=== PATIENT | male | born 1950 | race Caucasian/White ===

== ENCOUNTER → 2020-08-15 12:51 | Outpatient (BNVA) | payer MEDICARE, SELFPAY | PROVIDERS: Family Provider Family Medicine; PCP Family Medicine; Visit Provider Nurse Practitioner Family | DX: Z11.59 Encounter for screening for other viral diseases (principal) | CPT/HCPCS: 87635 ==

== ENCOUNTER 2021-01-19 16:47 | Emergency (ER) | payer MEDICARE, SELFPAY ==
[2021-01-19 16:48] VITALS: BP 102/58; PULSE 100; RESP 16; O2SAT 93; BMI 17.9
--- NOTE | 2021-01-19 16:53 | XRR_ITS ---
PROCEDURE INFORMATION: Exam: XR Chest Exam date and time: 01/19/2021 5:04 PM Age: 70 years old Clinical indication: Chest pain; Additional info: Cp TECHNIQUE: Imaging protocol: XR of the chest Views: 1 view. COMPARISON: CR Chest 1 [place] [id number] 01/11/2016 1:16 PM FINDINGS: Lungs: Emphysema. No consolidation. Pleural spaces: Unremarkable. No pleural effusion. No pneumothorax. Heart/Mediastinum: Unremarkable. No cardiomegaly. Bones/joints: Chronic severe rightward convex thoracic spine scoliosis. Osseous demineralization. No change in bones from prior. XR/XR chest 1V portable [id number] IMPRESSION: No acute pulmonary disease identified.
--- NOTE | 2021-01-19 16:55 | ECG_ITS ---
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 Measurements Intervals [place] Rate: 90 P: 69 DE: 137 QRS: 75 QRSD: 89 T: 75 QT: 342 QTc: 420 Interpretive Statements SINUS RHYTHM Compared to ECG 01/11/2016 13:13:42 Ventricular premature complex(es) no longer present Electronically Signed On 01-19-2021 17:58:48 CDT by Silvio Major M.D. [id number]
[2021-01-19] MEDS: lidocaine 2% viscous 15 ML, aluminum-mag hydrox-simethicon 30 ML, sucralfate oral liq 1 GM PO (17:06)
[2021-01-19 17:07] LABS: Basophils % 0.4 %; Eosinophils # 0.1 10^3/uL (0.0-0.8); Eosinophils % 0.7 %; Hematocrit 52.5 % (42.0-52.0); Hemoglobin 17.4 g/dL (11.7-16.6); Lymphocytes # 1.1 10^3/uL (0.8-4.8); Lymphocytes % 13.3 %; Mean Corpuscular HGB Conc 33.1 g/dL (30.0-36.0); Mean Corpuscular Hemoglobin 30.7 pg (28.0-34.0); Mean Corpuscular Volume 92.8 fL (80-94); Mean Platelet Volume 10.4 fL (7.4-10.4); Monocytes # 0.5 10^3/uL (0.2-0.9); Monocytes % 6.2 %; Neutrophils # 6.76 10^3/uL (1.8-7.7); Nucleated Red Blood Cells % 0 %; Platelet Count 167 10^3/cmm (130-400); Red Blood Count 5.66 10^6/uL (4.1-5.3); White Blood Count 8.6 10^3/uL (4.0-10.0)
--- NOTE | 2021-01-19 17:11 | W.ED.CHESTPA ---
Documented by User: Adilson Yanez MD 01/19/21 17:53 HPI - Chest Pain General: Chief Complaint: Chest Pain Stated Complaint: CHEST PAIN Time Seen by Provider: 01/19/21 16:50 Source: patient and EMS Mode of arrival: EMS Limitations: no limitations History of Present Illness: HPI narrative: 1-year-old male states he been having a burning chest pain since yesterday. He states he has had lots of burping is burning sensation in the middle of his chest. He states that nitro did help his pain. Denies any worsening proving factors. Denies any shortness of breath. Is a longtime smoker. He has no history of heart disease himself. Denies any cough or fever Associated symptoms: Deny abdominal pain, dyspnea, fever(s), nausea or vomiting Review of Systems Const: Denies: fever(s), chills, body aches or change in appetite Eyes: Denies: blurry vision or eye discomfort ENMT: Denies: throat pain or dental pain Card: Reports: chest pain Resp: Denies: dyspnea GI: Denies: abdominal pain, nausea, vomiting or diarrhea : Denies: dysuria Musc: Denies: neck pain or back pain Skin/Breast: Denies: rash Neuro: Denies: headache(s) Psych: Denies: depression Jordan/Lymph: Denies: easy bruising All/Imm: Denies: urticaria PFSH ED PFSH: Medical History Charcot-Kaykay disease Foot drop, bilateral History of progressive weakness Nicotine addiction Restrictive lung disease Social History Smoking and tobacco status: current every day smoker cigarettes Packs smoked per day: 0.5 Years cigarettes smoked: 30 Alcohol intake: never Physical Exam Const: COMMON NORMALS: no acute distress, patient oriented x3 and healthy appearing HENMT: COMMON NORMALS: normocephalic and atraumatic HEAD & SCALP: normocephalic and atraumatic Eye: COMMON NORMALS: Equal, round and reactive pupils present and EOMs intact bilaterally PUPIL: Yes Equal, round and reactive pupils present Neck/C-Spine: COMMON NORMALS: full ROM and supple Chest: COMMONS NORMALS: normal inspection of the chest and normal palpation of entire chest wall Resp: COMMON NORMALS: normal respiratory effort, No retractions, No use of accessory muscles and clear to auscultation bilaterally AUSCULTATION: clear to auscultation bilaterally Cardio: COMMON NORMALS: regular rate, regular rhythm and No murmurs present (Cardio) RATE: regular rate RHYTHM: regular rhythm GI: COMMON NORMALS: Normal to inspection, nondistended, normoactive bowel sounds present, Soft to palpation, non-tender and no masses PALPATION: Yes Soft to palpation Extremity: COMMON NORMALS: normal to inspection and full ROM Neuro: COMMON NORMALS: patient oriented x3, moves all extremities and no focal motor deficits Psych: COMMON NORMALS: mental status grossly normal, Normal thought process present and cooperative THOUGHT PROCESS: Normal thought process present Skin: COMMON NORMALS: no rashes or lesions noted and no wounds GENERAL SKIN EXAM: no rashes or lesions noted Course Vital Signs: Vital signs: Vital Signs Pulse Rate 80 01/19/21 21:10 Respiratory Rate 17 01/19/21 21:10 Blood Pressure 109/67 01/19/21 21:10 Pulse Oximetry 95 01/19/21 21:10 MDM - Chest Pain MDM Narrative: Medical decision making narrative: Claudio presents with chest pain that is atypical in nature. He has had burping and epigastric pain with it could be a gastritis or reflux. Initial troponin is only mildly elevated will turn patient over to Dr. Yu to follow 2-hour troponin. His EKG and x-ray here shows no acute findings. Lab Data: Labs: Lab Results 01/19/21 01/19/21 01/19/21 Range/Units 16:25 16:25 16:25 WBC 8.6 (4.0-10.0) 10^3/ uL RBC 5.66 H (4.1-5.3) 10^6/u L Hgb 17.4 H (11.7-16.6) g/dL Hct 52.5 H (42.0-52.0) % MCV 92.8 (80-94) fL MCH 30.7 (28.0-34.0) pg MCHC 33.1 (30.0-36.0) g/dL RDW 14.0 (12.1-15.1) % Plt Count 167 (130-400) 10^3/c mm MPV 10.4 (7.4-10.4) fL Neut % (Auto) 79.0 % Lymph % (Auto) 13.3 % Tillman % (Auto) 6.2 % Eos % (Auto) 0.7 % Baso % (Auto) 0.4 % Neut # (Auto) 6.76 (1.8-7.7) 10^3/u L Lymph # (Auto) 1.1 (0.8-4.8) 10^3/u L Tillman # (Auto) 0.5 (0.2-0.9) 10^3/u L Eos # (Auto) 0.1 (0.0-0.8) 10^3/u L Baso # (Auto) 0.0 (0.0-0.1) 10^3/u L Nucleated RBC % (a uto) 0 % Nucleated RBCs # 0.0 /100WBC Sodium 139 (136-145) mmol/L Potassium 4.6 (3.5-5.1) mmol/L Chloride 98 (98-107) mmol/L Carbon Dioxide 26 (22-29) mmol/L Anion Gap 19.6 H (5-19) BUN 30 H (8-23) mg/dL Creatinine 0.5 L (0.7-1.2) mg/dL GFR Calculation Not Reportable Glucose 99 (65-115) mg/dL Calculated Osmolal ity 294 (285-295) mOsm/k g Calcium 9.8 (8.5-10.5) mg/dL Total Bilirubin 0.5 (0.15-1.2) mg/dL AST 36 (0-40) U/L ALT 34 (0-41) U/L Alkaline Phosphata se 59 (40-130) IU/L Troponin T Baselin e 21 H (0-15) ng/L Troponin T 120 Min [place] (0-15) ng/L Delta Troponin T (0-10) ABS# Total Protein 7.3 (6.6-8.7) g/dL Albumin 4.9 (3.5-5.2) g/dL Globulin 2.4 (1.3-4.6) g/dL 01/19/21 Range/Units 18:20 WBC (4.0-10.0) 10^3/ uL RBC (4.1-5.3) 10^6/u L Hgb (11.7-16.6) g/dL Hct (42.0-52.0) % MCV (80-94) fL MCH (28.0-34.0) pg MCHC (30.0-36.0) g/dL RDW (12.1-15.1) % Plt Count (130-400) 10^3/c mm MPV (7.4-10.4) fL Neut % (Auto) % Lymph % (Auto) % Tillman % (Auto) % Eos % (Auto) % Baso % (Auto) % Neut # (Auto) (1.8-7.7) 10^3/u L Lymph # (Auto) (0.8-4.8) 10^3/u L Tillman # (Auto) (0.2-0.9) 10^3/u L Eos # (Auto) (0.0-0.8) 10^3/u L Baso # (Auto) (0.0-0.1) 10^3/u L Nucleated RBC % (a uto) % Nucleated RBCs # /100WBC Sodium (136-145) mmol/L Potassium (3.5-5.1) mmol/L Chloride (98-107) mmol/L Carbon Dioxide (22-29) mmol/L Anion Gap (5-19) BUN (8-23) mg/dL Creatinine (0.7-1.2) mg/dL GFR Calculation Glucose (65-115) mg/dL Calculated Osmolal ity (285-295) mOsm/k g Calcium (8.5-10.5) mg/dL Total Bilirubin (0.15-1.2) mg/dL AST (0-40) U/L ALT (0-41) U/L Alkaline Phosphata se (40-130) IU/L Troponin T Baselin e (0-15) ng/L Troponin T 120 Min [place] 17.93 H (0-15) ng/L Delta Troponin T -3.07 L (0-10) ABS# Total Protein (6.6-8.7) g/dL Albumin (3.5-5.2) g/dL Globulin (1.3-4.6) g/dL Imaging Data^: CXR: Attestation: I personally reviewed and interpreted this imaging study as follows: My impression: no acute abnormality EKG Data^: EKG 1: Attestation: I personally reviewed and interpreted this EKG as follows: EKG interpretation date: 01/19/21 EKG interpretation time: 17:19 Interpretation: nsr hr [address] or t wave abnormalities qrs 89 qtc 390 Discharge Plan Discharge Patient Disposition: Home Clinical Impression: Chest pain Qualifiers: Chest pain type: unspecified Qualified Code(s): R07.9 - Chest pain, unspecified Condition: Stable Prescriptions: New Prevacid 30 mg capsule,delayed release(DR/EC) 30 mg PO DAILY Qty: 30 RF: 0 No Action multivitamin [Daily Multi-Vitamin] Tablet 1 tab PO DAILY RF: 0 naproxen [EC-Naprosyn] 500 mg tablet,delayed release (DR/EC) 500 mg PO BID RF: 0 bupropion HCl [Wellbutrin SR] 100 mg tablet sustained-release 12 hr 100 mg PO BID Qty: 40 RF: 1 lorazepam 1 mg tablet 1 mg PO DAILY PRN (Reason: anxiety/smothering) Qty: 14 RF: 0 albuterol sulfate [Proventil HFA] 90 mcg/actuation HFA aerosol inhaler 2 puff INHALATION Q4H PRN (Reason: shortness of breath or wheezing) 90 Days Qty: 108 RF: 3 doxazosin 2 mg tablet 2 mg PO DAILY 90 Days Qty: 90 RF: 3 Discharge Orders: Discharge ED (Routine); Ordered 01/19/21 Ordered By: Chris Yu Referrals: Lana Mueller MD [Primary Care Provider] - 4-7 days Discharge Diet: Advance as tolerated Patient Instructions: Chest Pain (ED), Esophageal Spasm (ED) Coding Level of Care Code ED 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 Fwd Exam Comprehensive Documented by User: Chris Yu DO 01/20/21 00:23 HPI - Chest Pain General: Chief Complaint: Chest Pain Stated Complaint: CHEST PAIN Time Seen by Provider: 01/19/21 16:50 [facility] ED PFSH: Medical History Charcot-Kaykay disease Foot drop, bilateral History of progressive weakness Nicotine addiction Restrictive lung disease Social History Smoking and tobacco status: current every day smoker cigarettes Packs smoked per day: 0.5 Years cigarettes smoked: 30 Alcohol intake: never Course Vital Signs: Vital signs: Vital Signs Pulse Rate 80 01/19/21 21:10 Respiratory Rate 17 01/19/21 21:10 Blood Pressure 109/67 01/19/21 21:10 Pulse Oximetry 95 01/19/21 21:10 MDM - Chest Pain MDM Narrative: Medical decision making narrative: 70-year-old gentleman with chest pain, and some gastrointestinal upset checked out to me by Dr. Yanez at shift change. His repeat EKG was stable. His troponin was stable as well and did not rise. His symptoms are improved. In case his chest pain was related to GI causes, he will be placed on Prevacid. This was explained to him. He knows to follow-up tomorrow by phone with his PCP, as outpatient testing may be needed. Lab Data: Labs: Lab Results 01/19/21 01/19/21 01/19/21 Range/Units 16:25 16:25 16:25 WBC 8.6 (4.0-10.0) 10^3/ uL RBC 5.66 H (4.1-5.3) 10^6/u L Hgb 17.4 H (11.7-16.6) g/dL Hct 52.5 H (42.0-52.0) % MCV 92.8 (80-94) fL MCH 30.7 (28.0-34.0) pg MCHC 33.1 (30.0-36.0) g/dL RDW 14.0 (12.1-15.1) % Plt Count 167 (130-400) 10^3/c mm MPV 10.4 (7.4-10.4) fL Neut % (Auto) 79.0 % Lymph % (Auto) 13.3 % Tillman % (Auto) 6.2 % Eos % (Auto) 0.7 % Baso % (Auto) 0.4 % Neut # (Auto) 6.76 (1.8-7.7) 10^3/u L Lymph # (Auto) 1.1 (0.8-4.8) 10^3/u L Tillman # (Auto) 0.5 (0.2-0.9) 10^3/u L Eos # (Auto) 0.1 (0.0-0.8) 10^3/u L Baso # (Auto) 0.0 (0.0-0.1) 10^3/u L Nucleated RBC % (a uto) 0 % Nucleated RBCs # 0.0 /100WBC Sodium 139 (136-145) mmol/L Potassium 4.6 (3.5-5.1) mmol/L Chloride 98 (98-107) mmol/L Carbon Dioxide 26 (22-29) mmol/L Anion Gap 19.6 H (5-19) BUN 30 H (8-23) mg/dL Creatinine 0.5 L (0.7-1.2) mg/dL GFR Calculation Not Reportable Glucose 99 (65-115) mg/dL Calculated Osmolal ity 294 (285-295) mOsm/k g Calcium 9.8 (8.5-10.5) mg/dL Total Bilirubin 0.5 (0.15-1.2) mg/dL AST 36 (0-40) U/L ALT 34 (0-41) U/L Alkaline Phosphata se 59 (40-130) IU/L Troponin T Baselin e 21 H (0-15) ng/L Troponin T 120 Min [place] (0-15) ng/L Delta Troponin T (0-10) ABS# Total Protein 7.3 (6.6-8.7) g/dL Albumin 4.9 (3.5-5.2) g/dL Globulin 2.4 (1.3-4.6) g/dL 01/19/21 Range/Units 18:20 WBC (4.0-10.0) 10^3/ uL RBC (4.1-5.3) 10^6/u L Hgb (11.7-16.6) g/dL Hct (42.0-52.0) % MCV (80-94) fL MCH (28.0-34.0) pg MCHC (30.0-36.0) g/dL RDW (12.1-15.1) % Plt Count (130-400) 10^3/c mm MPV (7.4-10.4) fL Neut % (Auto) % Lymph % (Auto) % Tillman % (Auto) % Eos % (Auto) % Baso % (Auto) % Neut # (Auto) (1.8-7.7) 10^3/u L Lymph # (Auto) (0.8-4.8) 10^3/u L Tillman # (Auto) (0.2-0.9) 10^3/u L Eos # (Auto) (0.0-0.8) 10^3/u L Baso # (Auto) (0.0-0.1) 10^3/u L Nucleated RBC % (a uto) % Nucleated RBCs # /100WBC Sodium (136-145) mmol/L Potassium (3.5-5.1) mmol/L Chloride (98-107) mmol/L Carbon Dioxide (22-29) mmol/L Anion Gap (5-19) BUN (8-23) mg/dL Creatinine (0.7-1.2) mg/dL GFR Calculation Glucose (65-115) mg/dL Calculated Osmolal ity (285-295) mOsm/k g Calcium (8.5-10.5) mg/dL Total Bilirubin (0.15-1.2) mg/dL AST (0-40) U/L ALT (0-41) U/L Alkaline Phosphata se (40-130) IU/L Troponin T Baselin e (0-15) ng/L Troponin T 120 Min [place] 17.93 H (0-15) ng/L Delta Troponin T -3.07 L (0-10) ABS# Total Protein (6.6-8.7) g/dL Albumin (3.5-5.2) g/dL Globulin (1.3-4.6) g/dL Discharge Plan Discharge Patient Disposition: Home Clinical Impression: Chest pain Qualifiers: Chest pain type: unspecified Qualified Code(s): R07.9 - Chest pain, unspecified Condition: Stable Prescriptions: New Prevacid 30 mg capsule,delayed release(DR/EC) 30 mg PO DAILY Qty: 30 RF: 0 No Action multivitamin [Daily Multi-Vitamin] Tablet 1 tab PO DAILY RF: 0 naproxen [EC-Naprosyn] 500 mg tablet,delayed release (DR/EC) 500 mg PO BID RF: 0 bupropion HCl [Wellbutrin SR] 100 mg tablet sustained-release 12 hr 100 mg PO BID Qty: 40 RF: 1 lorazepam 1 mg tablet 1 mg PO DAILY PRN (Reason: anxiety/smothering) Qty: 14 RF: 0 albuterol sulfate [Proventil HFA] 90 mcg/actuation HFA aerosol inhaler 2 puff INHALATION Q4H PRN (Reason: shortness of breath or wheezing) 90 Days Qty: 108 RF: 3 doxazosin 2 mg tablet 2 mg PO DAILY 90 Days Qty: 90 RF: 3 Discharge Orders: Discharge ED (Routine); Ordered 01/19/21 Ordered By: Chris Yu Referrals: Lana Mueller MD [Primary Care Provider] - 4-7 days Discharge Diet: Advance as tolerated Patient Instructions: Chest Pain (ED), Esophageal Spasm (ED) Coding Level of Care Code ED 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 Chg Fwd Exam Comprehensive
[2021-01-19 17:27] LABS: Alanine Aminotransferase 34 U/L (0-41); Albumin Level 4.9 g/dL (3.5-5.2); Alkaline Phosphatase 59 IU/L (40-130); Aspartate Amino Transferase 36 U/L (0-40); Blood Urea Nitrogen 30 mg/dL (8-23); Calcium 9.8 mg/dL (8.5-10.5); Carbon Dioxide 26 mmol/L (22-29); Chloride 98 mmol/L (98-107); Globulin 2.4 g/dL (1.3-4.6); Glucose 99 mg/dL (65-115); Osmolality Calculated 294 mOsm/kg (285-295); Sodium 139 mmol/L (136-145); Total Bilirubin 0.5 mg/dL (0.15-1.2); Total Protein 7.3 g/dL (6.6-8.7)
[2021-01-19 17:28] LABS: Anion Gap 19.6 (5-19); Potassium 4.6 mmol/L (3.5-5.1); Troponin(5th) Baseline 21 ng/L (0-15)
[2021-01-19 17:50] VITALS: PULSE 78; RESP 21; O2SAT 95
[2021-01-19 18:22] VITALS: BP 125/70; PULSE 81; RESP 26; O2SAT 94
[2021-01-19 18:46] LABS: Troponin 5 2HR 17.93 ng/L (0-15)
--- NOTE | 2021-01-19 18:55 | ECG_ITS ---
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 Measurements Intervals [place] Rate: 90 P: 69 UT: 146 QRS: 73 QRSD: 88 T: 87 QT: 346 QTc: 424 Interpretive Statements SINUS RHYTHM Compared to ECG 01/19/2021 17:19:03 No significant changes Electronically Signed On 01-20-2021 19:26:13 CDT by Silvio Major M.D. [id number]
[2021-01-19 19:08] LABS: Troponin 5 2HR Delta -3.07 ABS# (0-10)
[2021-01-19 21:10] VITALS: BP 109/67; PULSE 80; RESP 17; O2SAT 95
== END 2021-01-19 21:25 | disposition home or self-care (01) ==
PROVIDERS: Emergency Medicine; Emergency Provider Emergency Medicine; PCP Family Medicine
DX: R07.9 Chest pain, unspecified (principal); F17.210 Nicotine dependence, cigarettes, uncomplicated
CPT/HCPCS: 71045; 80053; 84484; 85025; 93005; 99284

== ENCOUNTER → 2023-02-08 12:44 | Outpatient (BNVA) | payer MEDICARE, SELFPAY | PROVIDERS: PCP Family Medicine; Visit Provider Family Medicine | DX: I20.8 Other forms of angina pectoris (principal); M21.371 Foot drop, right foot; M21.372 Foot drop, left foot; J98.4 Other disorders of lung | CPT/HCPCS: 80053; 85025 ==

== ENCOUNTER 2024-02-15 12:35 | Observation (INO) | payer MEDICARE, SELFPAY ==
[2024-02-15] VITALS (10 sets, daily range): BP systolic 94–147; BP diastolic 46–79; PULSE 84–110; RESP 16–20; TEMP 36.6–36.7; O2SAT 88–97; BMI 19.8
--- NOTE | 2024-02-15 12:40 | ED_ITS ---
HPI - Back Pain/Injury 2 General: Chief Complaint: Urogenital-Male Stated Complaint: Back pain Time Seen by Provider: 02/15/24 12:39 Source: patient and EMS Mode of arrival: EMS Limitations: no limitations History of Present Illness: Patient is a 73-year-old male on hospice with a history of end-stage COPD, CHF, chronic smoking, severe thoracic scoliosis and Charcot Kaykay disease requiring cane/braces for ambulation here via EMS for complaints of right-sided back pain and hematuria. States he started developing right flank pain around 9 AM this morning. He states pain lasted for several hours before subsiding on its own. He is currently rating pain is minimal. He did notice approximately 4 episodes of gross hematuria. He is unable to urinate upon arrival here but has an extreme urge to do so. Apparently his hospice nurse had recommended evaluation in the emergency department as they were concerned with possible sepsis in regards to bilateral lower extremity wounds that he has reportedly had for months . He is reportedly having them dressed by hospice wound care nurse but feels they are continuing to worsen. Complains of ulcers now and large amount of weeping. MD elicited complaint: back pain and other (leg wounds/weeping) Onset (ago): hour(s) Timing: improved Severity: mild Pain scale (0-10): 3 Location: right flank Radiation: none Exacerbating factors: none Relieving factors: none Associated symptoms: Reports difficulty walking (chronic; uses a cane), hematuria, urinary urgency and other (hematuria); Deny abdominal pain, chills, dysuria or fever(s) Work related injury: No Review of Systems 2 Const: Denies: fever(s), chills or body aches Card: Denies: chest pain Resp: Denies: dyspnea GI: Denies: abdominal pain : Reports: flank pain, difficulty urinating, urinary frequency, urinary urgency, urinary hesitancy and hematuria; Denies: dysuria Musc: Reports: back pain Skin/Breast: Denies: rash Neuro: Reports: difficulty walking (chronic; uses a cane); Denies: headache(s) PFSH ED 2 PFSH: Medical History Prostatism Angina at rest Nicotine addiction Restrictive lung disease Charcot-Kaykay disease Foot drop, bilateral History of progressive weakness Social History Smoking and tobacco/nicotine status: current every day tobacco/nicotine user cigarettes Packs smoked per day: 0.5 Years cigarettes smoked: 30 Alcohol intake: never Substance/Drug Use: never Physical Exam 2 Const: COMMON NORMALS: patient oriented x3, no limitations and alert G ENERAL APPEARANCE: cooperative NUTRITIONAL APPEARANCE: cachectic (chronic) ORIENTATION/CONSCIOUSNESS: Yes awake, Yes oriented to person, Yes oriented to place and Yes oriented to time OTHER: disgruntled a large portion of his visit stating he doesn't like hospitals but at times is more cooperative HENMT: COMMON NORMALS: normocephalic and atraumatic HEAD & SCALP: normal to inspection, normocephalic and atraumatic FACE & SINUS: normal facial exam Eye: GENERAL EYE: appearance normal, both eyes and all related structures Resp: AUSCULTATION: rhonchi (diffuse-patient has end stage COPD) throughout OTHER: on his normal 2L O2 Cardio: COMMON NORMALS: regular rhythm RATE: tachycardic (mild-104 during my assessment) RHYTHM: regular rhythm GI: COMMON NORMALS: Normal to inspection, nondistended, normoactive bowel sounds present, Soft to palpation and non-tender PALPATION: Yes Soft to palpation : COMMON NORMALS: Yes no CVA tenderness (states most of his pain is gone currently) BLADDER/KIDNEY EXAM: Yes no CVA tenderness (states most of his pain is gone currently) Back/Pelvis: COMMON NORMALS: no CVA tenderness (states most of his pain is gone currently) and thoracic and lumbar spine normal to inspection Extremity: OTHER: atrophy to bilateral LEs; he has chronic dermatitis skin changes with weeping L>R and possible overlying cellulitis; L great toe previous amputation; dorsal ulcers to L foot Neuro: COMMON NORMALS: patient oriented x3 SENSORIUM/ORIENTATION: Yes alert, Yes oriented to person, Yes oriented to place and Yes oriented to time GAIT: Yes Antalgic gait present (chronic; has bilateral leg braces and uses a walker) Course 2 Consultations: Consultation #1: Dr. Weston-accepts admission Vital Signs: Vital signs: Vital Signs Temperature 97.8 F 02/15/24 12:45 Pulse Rate 84 02/15/24 15:00 Respiratory Rate 16 02/15/24 15:00 Blood Pressure 133/57 02/15/24 15:00 Pulse Oximetry 95 02/15/24 15:00 Oxygen Delivery Me thod Nasal Cannula 02/15/24 15:00 Oxygen Flow Rate 2 02/15/24 15:00 MDM - Back Pain/Injury Medical Decision Making Patient is a 73-year-old male with an extensive medical history and chronic illness on hospice here in the emergency department stating he would like his hospice revoked and admitted to the hospital. He states he had a right flank pain earlier today that lasted for an hour or 2 before subsiding on its own. It has not returned. He has since had gross hematuria, urinary urgency, and frequency with small voids. He also has a complaint of bilateral lower extremity lymphedema with weeping and developing wounds that are not improving with wound care provided by hospice. He states he overall feels poorly and would like to be admitted to the hospital. Workup here shows a white count of roughly 12.7 with a left shift. His lactate is normal. UA showing gross hematuria with infection. CT scan does not show an obstructive stone. He was started on IV Rocephin. Spoke to hospitalist Dr. Weston who is agreeable to admit patient. Dr. Randhawa aware of patient and will place admit orders. Labs 02/15/24 12:36 02/15/24 12:36 Radiology Impressions Chest X-Ray 02/15/24 12:54 IMPRESSION: No acute cardiopulmonary pathology . Possible new midthoracic vertebral body compression deformity. Spine radiographs and/or CT recommended for further assessment if clinically warranted. Laboratory Results WBC 12.69 10^3/uL (3.29-11.43) H 02/15/24 12:36 RBC 5.13 10^6/uL (3.85-5.65) 02/15/24 12:36 Hgb 15.30 g/dL (11.27-16.99) 02/15/24 12:36 Hct 48.0 % (37-53) 02/15/24 12:36 MCV 93.6 fl (82-101) 02/15/24 12:36 MCH 29.8 pg (27-33) 02/15/24 12:36 MCHC 31.9 g/dL (30-55) 02/15/24 12:36 RDW 13.5 % (12.1-15.1) 02/15/24 12:36 Plt Count 287 10^3/cmm (157-399) 02/15/24 12:36 MPV 9.7 fL (7.4-10.4) 02/15/24 12:36 Neut % (Auto) 85.3 % 02/15/24 12:36 Lymph % (Auto) 8.4 % 02/15/24 12:36 [place] % (Auto) 5.5 % 02/15/24 12:36 Eos % (Auto) 0.2 % 02/15/24 12:36 Baso % (Auto) 0.2 % 02/15/24 12:36 Neut # (Auto) 10.82 10^3/uL (1.8-7.7) H 02/15/24 12:36 Lymph # (Auto) 1.1 10^3/uL (0.8-4.8) 02/15/24 12:36 [place] # (Auto) 0.7 10^3/uL (0.2-0.9) 02/15/24 12:36 Eos # (Auto) 0.0 10^3/uL (0.0-0.8) 02/15/24 12:36 Baso # (Auto) 0.0 10^3/uL (0.0-0.1) 02/15/24 12:36 Nucleated RBC % (auto) 0 % 02/15/24 12:36 Nucleated RBCs # 0.0 /100WBC 02/15/24 12:36 Sodium 139 mmol/L (136-145) 02/15/24 12:36 Potassium 4.5 mmol/L (3.5-5.1) 02/15/24 12:36 Chloride 96 mmol/L (98-107) L 02/15/24 12:36 Carbon Dioxide 34 mmol/L (22-29) H 02/15/24 12:36 Anion Gap 13.5 (5-19) 02/15/24 12:36 BUN 28 mg/dL (8-23) H 02/15/24 12:36 Creatinine 0.5 mg/dL (0.7-1.2) L 02/15/24 12:36 GFR Calculation Not Reportable 02/15/24 12:36 Glucose 125 mg/dL (65-115) H 02/15/24 12:36 Calculated Osmolality 295 mOsm/kg (285-295) 02/15/24 12:36 Lactic Acid 1.8 mmol/L (0.5-2.2) 02/15/24 12:36 Calcium 9.7 mg/dL (8.5-10.5) 02/15/24 12:36 Total Bilirubin 0.5 mg/dL (0.15-1.2) 02/15/24 12:36 AST 29 U/L (0-40) 02/15/24 12:36 ALT 37 U/L (0-41) 02/15/24 12:36 Alkaline Phosphatase 79 U/L (40-130) 02/15/24 12:36 C-Reactive Protein 8.5 mg/L (0.0-4.9) H 02/15/24 12:36 Total Protein 7.4 g/dL (6.6-8.7) 02/15/24 12:36 Albumin 4.0 g/dL (3.5-5.2) 02/15/24 12:36 Globulin 3.4 g/dL (1.3-4.6) 02/15/24 12:36 Urine Color Smiley (Yellow) 02/15/24 13:03 Urine Appearance Cloudy (CLEAR) A 02/15/24 13:03 Urine pH 5 (5-7) 02/15/24 13:03 Ur Specific [place] 1.020 (1.005-1.030) 02/15/24 13:03 Urine Protein 3+ (Negative) H 02/15/24 13:03 Urine Glucose (UA) Norm (Normal) 02/15/24 13:03 Urine Ketones 1+ (Negative) H 02/15/24 13:03 Urine Blood 3+ (Negative) H 02/15/24 13:03 Urine Nitrate Positive (Negative) H 02/15/24 13:03 Urine Bilirubin 1+ (Negative) H 02/15/24 13:03 Urine Urobilinogen 1 mg/dL (Negative) H 02/15/24 13:03 Ur Leukocyte Esterase 2+ (Negative) H 02/15/24 13:03 Urine RBC Too numerous to cnt /hpf (0-2) H 02/15/24 13:03 Urine WBC 40-55 /hpf (0-5) H 02/15/24 13:03 Ur Squamous Epith Cells 0-4 /hpf (0-5) H 02/15/24 13:03 Calcium Oxalate Crystal 0-4 /hpf H 02/15/24 13:03 Amorphous Sediment Not Reportable 02/15/24 13:03 Urine Bacteria 1+ /hpf (NONE) H 02/15/24 13:03 Urine Mucus Trace /hpf 02/15/24 13:03 All radiology interpretation(s) finalized by discharge Discharge Plan Discharge Patient Disposition: Admitted As Inpatient Clinical Impression: Charcot-Kaykay disease, Acute cystitis with hematuria, Lymphedema, Ulcers of both lower legs Condition: Stable Coding Level of Care Code ED [employer] for Nel Daugherty
--- NOTE | 2024-02-15 12:54 | XRR_ITS ---
PROCEDURE INFORMATION: Exam: XR Chest Exam date and time: 02/15/2024 12:57 PM Age: 73 years old Clinical indication: Other: Back pain TECHNIQUE: Imaging protocol: Radiologic exam of the chest. Views: 1 view. COMPARISON: CR XR chest 1V portable [id number] 01/19/2021 5:02 PM FINDINGS: Lungs: No acute pulmonary pathology. Pleural spaces: No pleural effusion or pneumothorax. Heart/Mediastinum: Stable cardiomediastinal contours distorted by scoliosis. Bones/joints: Marked thoracolumbar scoliosis again noted. There is a possible new compression fracture deformity of the vertebral body just craniad to the apex of the dextrocurvature with assessment limited by single frontal view. Other findings: No effusion. XR/XR chest 1V portable [id number] IMPRESSION: No acute cardiopulmonary pathology . Possible new midthoracic vertebral body compression deformity. Spine radiographs and/or CT recommended for further assessment if clinically warranted.
[2024-02-15 13:17] LABS: Basophils % 0.2 %; Eosinophils % 0.2 %; Lymphocytes # 1.1 10^3/uL (0.8-4.8); Lymphocytes % 8.4 %; Mean Corpuscular HGB Conc 31.9 g/dL (30-55); Mean Corpuscular Hemoglobin 29.8 pg (27-33); Mean Corpuscular Volume 93.6 fl (82-101); Mean Platelet Volume 9.7 fL (7.4-10.4); Monocytes # 0.7 10^3/uL (0.2-0.9); Monocytes % 5.5 %; Neutrophils # 10.82 10^3/uL (1.8-7.7); Neutrophils % 85.3 %; Nucleated Red Blood Cells % 0 %; Platelet Count 287 10^3/cmm (157-399); Red Blood Count 5.13 10^6/uL (3.85-5.65); Red Cell Distribution Width 13.5 % (12.1-15.1); White Blood Count 12.69 10^3/uL (3.29-11.43)
[2024-02-15 13:20] LABS: Glucose Urine UA Norm (Normal); Protein Urine 3+ (Negative); Urine Appearance Cloudy (CLEAR); Urine Color Amber (Yellow); pH Urine 5 (5-7)
[2024-02-15 13:21] LABS: Add Urine Microscopic? YES; Bilirubin Urine 1+ (Negative); Blood Urine 3+ (Negative); Ketones Urine 1+ (Negative); Leukocyte Esterase Urine 2+ (Negative); Nitrate Urine Positive (Negative); Urobilinogen Urine 1 mg/dL (Negative)
--- NOTE | 2024-02-15 13:22 | CT_ITS ---
WS: [id number] CT ABDOMEN AND PELVIS NONCONTRAST HISTORY: R flank pain, hematuria, UTI TECHNIQUE: Imaging performed through the abdomen and pelvis. Coronal and sagittal reformats are submi tted. All CT scans at [facility] use at least one of these dose optimization techniques: auto mated exposure control; mA and/or kV adjustment per patient size (includes targeted exams where dose is matched to clinical indication); or iterative reconstruction. DLP: 366.17 mGy.cm COMPARISON: 06/28/2010 Lower thorax: Severe emphysema. Heart is normal size. Liver: Limited but similar to the prior study. There are a few scattered hypodensities within the nicky er. These may be cysts. Gallbladder: Normal gallbladder. No pericholecystic fluid or cholelithiasis. No gallbladder wall thic kening. Pancreas: Poorly visualized. Spleen: Normal. Adrenal glands: Normal. No mass. Right kidney: Normal size kidney. Very minimally prominent renal pelvis. No stone identified within t he ureter. The entire ureter cannot be followed. Nonobstructing calcification seen in the RIGHT kidne y. Left kidney: No hydronephrosis. Nonobstructing calcifications. Aorta: Mild atherosclerosis abdominal aorta with no aneurysm. No adenopathy identified. Limited evaluation due to body habitus and scanning position of the patient . GI tract: Increased air throughout the colon. No obstructive pattern. Abdominal wall: Negative. No hernia. Pelvis: No free fluid. Prostate enlargement. Nondistention of the urinary bladder. There is a loop of the distal colon near the orifice of the RIGHT inguinal canal. No obstruction. Prominent omental fat in the LEFT inguinal canal. Osseous structures: Severe LEFT curvature of the lumbar spine. IMPRESSION: 1. CT evaluation of the abdomen and pelvis is limited due to patient positioning and severe scoliosi s. 2. There is very mild dilatation of the RIGHT renal pelvis but no stone or obstruction is identified . No perinephric stranding. 3. Nonobstructing bilateral renal calculi. 4. Severe emphysema. 5. Diffuse constipation. 6. Mild protrusions of colon into the RIGHT inguinal canal. No obstruction or incarceration. Promine nt omental fat in the LEFT inguinal canal.
[2024-02-15 13:28] LABS: Add Urine Culture? Yes; Bacteria Urine 1+ /hpf; Calcium Oxalate Crystals Urine 0-4 /hpf; Mucus Urine TRACE /hpf; RBC Urine TOO NUMEROUS TO CNT /hpf (0-2); Squamous Epithelial Cell Urine 0-4 /hpf (0-5); WBC Urine 40-55 /hpf (0-5)
[2024-02-15 13:33] LABS: Alanine Aminotransferase 37 U/L (0-41); Alkaline Phosphatase 79 U/L (40-130); Anion Gap 13.5 (5-19); Aspartate Amino Transferase 29 U/L (0-40); Blood Urea Nitrogen 28 mg/dL (8-23); Calcium 9.7 mg/dL (8.5-10.5); Carbon Dioxide 34 mmol/L (22-29); Chloride 96 mmol/L (98-107); Creatinine Clr Calc Pharmacy 74.0515; Globulin 3.4 g/dL (1.3-4.6); Glucose 125 mg/dL (65-115); Osmolality Calculated 295 mOsm/kg (285-295); Potassium 4.5 mmol/L (3.5-5.1); Sodium 139 mmol/L (136-145); Total Bilirubin 0.5 mg/dL (0.15-1.2); Total Protein 7.4 g/dL (6.6-8.7)
[2024-02-15] MEDS: sodium chloride 0.9% 1,000 ML 999 ML IV (13:36)
[2024-02-15] MEDS: LORazepam 2 mg/mL INJ 10 mL MDV 1 MG IV (14:07)
[2024-02-15 14:18] LABS: Lactic Sepsis W/Reflex 1.8 mmol/L (0.5-2.2)
[2024-02-15 14:19] LABS: C Reactive Protein 8.5 mg/L (0.0-4.9)
[2024-02-15] MEDS: cefTRIAXone 1,000 MG in sodium chloride 0.9% (plus) 50 ML 100 MG IV (15:48)
--- NOTE | 2024-02-15 16:12 | PC.NURSE ---
this nurse spoke to [facility] who called to check on patient. this nurse explained that the patient is being admitted. [facility] nurse stated she would discharge patient from hospice during his stay so the hospital could bill his insurance. she requested we call [facility] upon discharge so they could reinstate him.
--- NOTE | 2024-02-15 17:46 | P.HP_ITS ---
Providers/Chief Complaint 2 Admitting Physician: Sukhi Weston Primary Care Provider: Lana Mueller MD Chief Complaint: Back pain History of Present Illness Pleasant 73-year-old woman with history of advanced COPD currently on 2 L of oxygen, on hospice, Gryptlm-Fzrwj-Zzxis, CHF, chronic LLE wounds, smokinig, came into ER for evaluation due to urinary symptoms with urgency, frequency, hematuria, right flank pain, states yesterday urinated zayra blood, as well as worsening erythema, swelling around the ulcers of left lower extremity. In ER he is afebrile, with leukocytosis 12.69, with urine with numerous RBCs, too numerous to count, WBC of 40-55, 1+ bacteria, positive nitrate, cloudy, CT abdomen pelvis limited due to patient positioning, but with very mild elevation of the right renal pelvis, no stone identified, no perinephric stranding. Not all sections of ureter visualized, but no stone. Bilateral nonobstructing renal calculi. Severe emphysema, diffuse constipation. Mild protrusion of the colon into right inguinal canal. No obstruction or incarceration. Prominent omental fat in the left inguinal canal. Patient reported he would like to come off hospice to address current issues and would like to be hospitalized and treated. Review of Systems 2 Const: Denies: fever(s), chills, body aches or malaise ENMT: Denies: throat pain Card: Denies: chest pain, edema, pre-syncope or dyspnea on exertion Resp: Denies: dyspnea, productive cough, change in phlegm color or hemoptysis GI: Denies: abdominal pain, nausea, vomiting, diarrhea, constipation, hematochezia or melena : Reports: flank pain, difficulty urinating, urinary frequency and hematuria Musc: Denies: back pain, joint swelling or joint redness Skin/Breast: Denies: rash or new lesions Neuro: Denies: headache(s) Medications/Allergies Home Medications Medication Instructions Recorded Confirmed Last Taken Type multivitamin (Daily Multi-Vitamin 1 tab PO DAILY 03/27/20 02/15/24 Unknown History tablet) naproxen 500 mg tablet,delayed 500 mg PO DAILY 03/27/20 02/15/24 02/14/24 History release (EC-Naprosyn) nitroglycerin 0.4 mg sublingual 0.4 mg sublingual Q5M PRN chest 01/27/21 02/15/24 Unknown Rx tablet pain #25 tabs albuterol sulfate 2.5 mg/3 mL 2.5 mg (3 mL) inhalation Q6H 30 02/21/21 02/15/24 Unknown Rx (0.083 %) solution for nebulization days #360 mL albuterol sulfate 90 mcg/actuation 2 puff inhalation Q4H PRN 02/08/23 02/15/24 Unknown Rx aerosol inhaler (Proventil HFA) shortness of breath or wheezing 30 days #8.5 grams lorazepam 1 mg tablet 1 mg PO DAILY PRN 02/08/23 02/15/24 Unknown Rx anxiety/smothering #30 tabs aspirin 81 mg tablet,delayed 81 mg PO DAILY 02/15/24 02/15/24 02/14/24 History release doxazosin 2 mg tablet 2 mg PO DAILY 02/15/24 02/15/24 02/14/24 History furosemide 20 mg tablet 20 mg PO DAILY 02/15/24 02/15/24 02/14/24 History morphine concentrate 100 mg/5 mL See Rx Instructions .Route .COMPLEX 02/15/24 02/15/24 02/15/24 History (20 mg/mL) oral solution potassium chloride 10 mEq 10 meq PO DAILY 02/15/24 02/15/24 02/14/24 History capsule,extended release prednisone 10 mg tablet 10 mg PO DAILY 02/15/24 02/15/24 02/14/24 History Allergies Allergy/AdvReac Type Severity Reaction Status Date / Time Sulfa (Sulfonamide Allergy rash Verified 02/08/23 12:03 Antibiotics) PFSH Acute 2 PFSH: Medical History (Updated 02/15/24 @ 19:21 by Sukhi Weston MD) COPD (chronic obstructive pulmonary disease) Osteomyelitis of metatarsal Squamous cell carcinoma Prostatism Angina at rest Nicotine addiction Restrictive lung disease Charcot-Kaykay disease Foot drop, bilateral History of progressive weakness Surgical History (Updated 02/15/24 @ 19:21 by Sukhi Weston MD) History of amputation of great toe Social History Smoking and tobacco/nicotine status: current every day tobacco/nicotine user cigarettes Packs smoked per day: 0.5 Years cigarettes smoked: 30 Alcohol intake: never Substance/Drug Use: never Vitals/I&O/Wt Last Vital Signs Temp 97.8 F 02/15/24 16:52 Pulse 87 02/15/24 16:52 Resp 16 02/15/24 16:52 BP 127/57 02/15/24 16:52 Pulse Ox 97 02/15/24 16:52 O2 Del Method Nasal Cannula 02/15/24 16:00 O2 Flow Rate 2 02/15/24 16:00 02/15/24 02/15/24 02/15/24 06:59 14:59 22:59 Intake Total 1050 / 1050 Balance 1050 / 1050 Weight last 48 hrs Weight 58.967 kg Physical Exam 2 Narrative: Accompanied by family member Const: COMMON NORMALS: patient oriented x3 and alert GENERAL APPEARANCE: c ooperative NUTRITIONAL APPEARANCE: underweight ORIENTATION/CONSCIOUSNESS: Yes awake HENMT: COMMON NORMALS: oropharynx normal Neck/C-Spine: COMMON NORMALS: no JVD Resp: COMMON NORMALS: normal respiratory effort and clear to auscultation bilaterally AUSCULTATION: diminished lung sounds Cardio: COMMON NORMALS: no JVD, regular rhythm, S1 normal heart sound present, S2 normal heart sound present and No murmurs present (Cardio) RHYTHM: regular rhythm HEART SOUNDS: S1 normal heart sound present and S2 normal heart sound present GI: COMMON NORMALS: Normal to inspection, nondistended, normoactive bowel sounds present, Soft to palpation and non-tender PALPATION: Yes Soft to palpation Extremity: COMMON NORMALS: no joint enlargement GENERAL: Yes edema (3+) Neuro: COMMON NORMALS: patient oriented x3 and moves all extremities S ENSORIUM/ORIENTATION: Yes alert Skin: OTHER: Edema bilateral lower extremities, stasis dermatitis bilaterally, but significant worse on the left, also with erythema, warmth, weeping at the dorsal foot wounds/ulcers. Prior toe amputations. Data 02/15/24 12:36 02/15/24 12:36 Micro: Microbiology 02/15/24 15:37 Blood Culture - Preliminary Blood SPECIMEN COLLECTED 02/15/24 15:35 Blood Culture - Preliminary Blood SPECIMEN COLLECTED A&P Assessment and plan (1) Complicated UTI (urinary tract infection): Reviewed vitals, CBC, CMP, UA, CT abdomen pelvis, chest x-ray, ER provider note, discussed with ER provider. Complicated urinary tract infection with ascending urinary tract infection with right-sided renal pelvis with mild dilation, no stone blockage, but is having hematuria. Monitor for urinary obstruction. IV antibiotic treatment with ceftriaxone, empirically also vancomycin due to cellulitis. Follow-up urine culture. Hypotensive in ER, does not quite fit septic shock criteria, lactic acid is normal. Leukocytosis, but afebrile, heart rate 87. Hypotension improved with fluid challenge. Monitor blood pressures. Normally on doxazosin, monitor blood pressures for now, if steady resume doxazosin. Discussing goals of care he would like to discontinue hospice at current time to treat current medical issues. With hematuria, risk of urinary obstruction. Hold aspirin for now. Prescription with him aspirin as prophylactic. Denies history of VT, CVA. On chronic prednisone, monitor blood pressures, consider stress dose steroids in case of further hypotension. (2) Cellulitis: Cellulitis left lower extremity with chronic wounds, noted worsening redness, swelling, warmth to touch. Leukocytosis 12.69. Ceftriaxone as above for UTI, additionally vancomycin. Risk of [place] other toxicity with vancomycin, reassess renal function. (3) CHF exacerbation: Acute exacerbation, he is orthopnea, having to sit upright in ER, edematous, type CHF unknown, obtain echocardiogram. He was hypotensive in ER, will monitor blood pressure first, treat UTI, cellulitis, if blood pressure is steady, start some diuretic. (4) Advanced COPD: Advance COPD, on chronic prednisone, oxygen, has nebulizer at home. On hospice care prior to hospitalization. Continue breathing treatments, prednisone. Plan Smoking addiction: Encourage cessation. Nicotine replacement as needed. Attestations 2 Medical Necessity Statement*: Place in observation for additional assessment management of complicated UTI with ascending right-sided check, hematuria, as well as CHF exacerbation, cellulitis, hypotension on presentation and gentleman with advanced COPD. and High MDM includes amount and/or complexity of data reviewed/ordered [ previous or external records, resulted lab(s)/test(s), ordered lab(s)/test(s) and other healthcare professional discussion] and described risk of complication, morbidity or mortality of management as documented Diagnoses Complicated UTI (urinary tract infection) N39.0 Cellulitis L03.90 CHF exacerbation I50.9 Advanced COPD J44.9
--- NOTE | 2024-02-15 17:51 | XRR_ITS ---
PROCEDURE INFORMATION: Exam: XR Left Foot Exam date and time: 02/15/2024 6:08 PM Age: 73 years old Clinical indication: Edema; Location not specified; Prior surgery; Surgery date: 6+ months; Surgery type: Lt foot; Additional info: Cellulitis, chronic ulcers, assess for any pathologic fracture/lucency TECHNIQUE: Imaging protocol: Radiologic exam of the left foot. Views: 3 or more views. COMPARISON: CR XR foot LT min 3V* [id number] 05/05/2019 10:58 AM FINDINGS: Bones/joints: Patient is status post resection of the 5th metatarsal to the level of the base. Phalanges of the toe remain. These appear intact on the lateral view with a assessment on the frontal and oblique views limited by overlap. Hammertoes of the 2nd through 4th toes noted. Features of prior resection of the great toe again seen. Truncation of the distal tuft of the 2nd toe again seen. Mild degenerative changes of the interphalangeal joints again seen. Mild degenerative change of the midfoot. Partially fused hindfoot and midfoot again noted. Soft tissue swelling of the forefoot is present. No soft tissue emphysema seen. No bone erosion evident. No acute fracture. Soft tissues: See Bones/joints finding. XR/XR foot LT min 3V* [id number] IMPRESSION: Postsurgical and degenerative changes with forefoot soft tissue swelling as described. No acute bony pathology.
--- NOTE | 2024-02-15 17:51 | USCV_ITS ---
Claudio Chery Age: 73 Gender: M : 1950 Exam Date: 02/15/2024 18:39 Ordering Phys: Sukhi Weston MD Technologist: LOLY [place] [facility] [place] patient with end-stage COPD, chronic smoking. admit for SOB. BP: 127 / 57 HR: 76 Rhythm: Sinus Technical Quality: Adequate MEASUREMENTS (Male / Female) Normal Values 2D ECHO LV Diastolic Diameter PLAX 3.4 cm 4.2 - 5.9 / 3.9 - 5.3 cm IVS Diastolic Thickness 1.2 cm 0.6 - 1.0 / 0.6 - 0.9 cm IVS Systolic Thickness 1.5 cm LVPW Diastolic Thickness 1.7 cm 0.6 - 1.0 / 0.6 - 0.9 cm LVPW Systolic Thickness 1.6 cm LVOT Diameter 1.8 cm LV Ejection Fraction 2D Teich 53.2 % LV Ejection Fraction MOD 2C 67.3 % LV Ejection Fraction 2C AL 69.0 % LA Diameter 2.0 cm LA Sys Volume AL 16.5 cm cubed LA Sys Volume Index AL 9.9 cm cubed/m squared Aorta at Sinotubular Diameter 2.4 cm IVC Diameter 1.1 cm M-MODE LA Ao Ratio MM 0.7 AV Cusp Separation MM 2.4 cm DOPPLER AV Peak Velocity 116.0 cm/s LVOT Peak Velocity 118.0 cm/s AV Area Cont Eq vti 3.2 cm squared AV Area Cont Eq pk 2.5 cm squared MV Peak Velocity 107.0 cm/s TV Peak E Velocity 59.0 cm/s FINDINGS Left Ventricle Normal left ventricular size and systolic function, EF 67%. Relative hypokinesia of the apical septal segment. Right Ventricle Normal right ventricular size and systolic function. Right Atrium The right atrium is normal in size. Left Atrium The left atrium is normal in size. Mitral Valve Thickened mitral valve. Aortic Valve No gross abnormalities noted Tricuspid Valve No gross abnormalities noted Pulmonic Valve Pulmonic valve not well visualized. Pericardium Normal pericardium without effusion. Aorta Normal aortic annulus size. IVC Normal IVC dimension with >50% respiratory change of the inferior vena cava. CONCLUSIONS Normal left ventricular size and systolic function, EF 67%. Relative hypokinesia of the apical septal segment. Thickened mitral valve. No intracardiac masses No pericardial effusion Technically somewhat difficult study because of poor ultrasonic window Compared to the previous study from 02/13/2016, there may not be a significant change Dr Rayshawn Cash MD FACC (Electronically Signed) Final Date: 16 February 2024 06:20 S
--- NOTE | 2024-02-15 17:51 | USCV_ITS ---
Claudio Chery Age: 73 Gender: M : 1950 Exam Date: 02/15/2024 18:16 Ordering Phys: Sukhi Weston MD Technologist: Wilfrido Marie [place] [facility] [place]: end-stage COPD. chronic smoking, SOB, bilateral gaiter zone ulcers HISTORY: end-stage COPD. chronic smoking, SOB bilateral gaiter zone ulcers PROCEDURES: Venous duplex imaging was performed in bilateral lower extremities. The following venous structures were evaluated: common femoral vein, profunda vein, proximal portion of the greater saphenous vein, superficial femoral vein, and the popliteal vein. In addition, the posterior tibial veins were evaluated. FINDINGS: Normal 2-D Doppler and augmentation and compressibility throughout the lower extremity venous structures. Additional imaging through the proximal calf veins also reveals no thrombus. Limited evaluation of the greater saphenous vein is patent with no thrombus. CONCLUSIONS No DVT bilateral lower extremities. Dr. Isabela Parker DO (Electronically Signed) Final Date: 16 February 2024 07:38 S
--- NOTE | 2024-02-15 18:24 | PC.NURSE ---
Upon getting pt settled in and changing him into gown, pt stated sorry about the dirt Pts clothes visibly dirty and smelt that way as well, pts underwear are whitie tighties and brown in color with thick brown dried pooh in them.
[2024-02-15] MEDS: vancomycin 1,000 MG in sodium chloride 0.9% 250 ML 250 MG IV (18:46)
[2024-02-15] MEDS: enoxaparin 30 mg/0.3 mL Syringe SUBCUT (18:47)
[2024-02-15] MEDS: albuterol 2.5 mg/3 mL Neb INHALATION (19:56)
[2024-02-15] MEDS: morphine 10 mg/0.5 mL oral liq UD PO (20:13)
[2024-02-16] VITALS (11 sets, daily range): BP systolic 102–151; BP diastolic 44–77; PULSE 80–91; RESP 16–22; TEMP 36.6–37; O2SAT 89–96
[2024-02-16] MEDS: albuterol 2.5 mg/3 mL Neb INHALATION ×4 (01:27→21:29)
[2024-02-16 05:42] LABS: Basophils % 0.3 %; Eosinophils % 0.1 %; Hematocrit 40.4 % (37-53); Lymphocytes % 7.1 %; Mean Corpuscular HGB Conc 31.9 g/dL (30-55); Mean Corpuscular Hemoglobin 30.3 pg (27-33); Mean Corpuscular Volume 94.8 fl (82-101); Mean Platelet Volume 9.3 fL (7.4-10.4); Monocytes # 1.1 10^3/uL (0.2-0.9); Monocytes % 7.7 %; Neutrophils # 12.41 10^3/uL (1.8-7.7); Neutrophils % 84.5 %; Nucleated Red Blood Cells % 0 %; Platelet Count 215 10^3/cmm (157-399); Red Blood Count 4.26 10^6/uL (3.85-5.65); Red Cell Distribution Width 13.9 % (12.1-15.1); White Blood Count 14.68 10^3/uL (3.29-11.43)
[2024-02-16 06:02] LABS: Anion Gap 11.3 (5-19); Blood Urea Nitrogen 23 mg/dL (8-23); Calcium 9.3 mg/dL (8.5-10.5); Carbon Dioxide 33 mmol/L (22-29); Chloride 105 mmol/L (98-107); Creatinine Clr Calc Pharmacy 62.0446; Glucose 92 mg/dL (65-115); Magnesium 2.1 mg/dL (1.7-2.3); Osmolality Calculated 303 mOsm/kg (285-295); Potassium 4.3 mmol/L (3.5-5.1); Sodium 145 mmol/L (136-145)
[2024-02-16 06:36] LABS: Glucose Point of Care 135 mg/dL (70-110)
[2024-02-16] MEDS: doxazosin 1 mg Tablet 2 MG PO (08:55)
[2024-02-16] MEDS: predniSONE 10 mg Tablet PO (08:55)
[2024-02-16] MEDS: morphine 10 mg/0.5 mL oral liq UD PO ×5 (08:55→23:24)
[2024-02-16] MEDS: cefTRIAXone 1,000 MG in sodium chloride 0.9% (plus) 50 ML 100 MG IV (08:55)
[2024-02-16] MEDS: FUROsemide 10 mg/mL SDV 2mL 20 MG IVP (11:52)
[2024-02-16] MEDS: vancomycin 1,000 MG in sodium chloride 0.9% 250 ML 250 MG IV (13:29)
[2024-02-16] MEDS: albumin 25 G/100 ML BAG 60 G IV (16:19)
[2024-02-16] MEDS: enoxaparin 30 mg/0.3 mL Syringe SUBCUT (18:26)
--- NOTE | 2024-02-16 20:03 | P.PN_ITS ---
Subjective 2 Subjective: Does get quite dyspneic when having to move to the edge of the bed to use the urinal. Prefers to sit forward in bed. Vitals/I&O/Wt Last Vital Signs Temp 98.0 F 02/16/24 15:46 Pulse 87 02/16/24 15:46 Resp 16 02/16/24 15:46 BP 102/44 02/16/24 15:46 Pulse Ox 90 02/16/24 15:46 O2 Del Method Room Air 02/16/24 15:46 O2 Flow Rate 4 02/16/24 14:34 02/16/24 02/16/24 02/16/24 06:59 14:59 22:59 Intake Total 240 / 1565.000 300 / 300 100 / 400 Output Total 1100 / 1100 Balance 240 / 1565.000 300 / 300 -1000 / -700 Weight last 48 hrs Weight 54.148 kg Weight 58.967 kg Weight 58.967 kg Physical Exam 2 Narrative: Accompanied by family including his son Const: COMMON NORMALS: patient oriented x3 and alert GENERAL APPEARANCE: c ooperative NUTRITIONAL APPEARANCE: underweight ORIENTATION/CONSCIOUSNESS: Yes awake HENMT: COMMON NORMALS: oropharynx normal Neck/C-Spine: COMMON NORMALS: no JVD Resp: COMMON NORMALS: normal respiratory effort and clear to auscultation bilaterally AUSCULTATION: clear to auscultation bilaterally and diminished lung sounds Cardio: COMMON NORMALS: no JVD, regular rhythm, S1 normal heart sound present, S2 normal heart sound present and No murmurs present (Cardio) RHYTHM: regular rhythm HEART SOUNDS: S1 normal heart sound present and S2 normal heart sound present GI: COMMON NORMALS: Normal to inspection, nondistended, normoactive bowel sounds present, Soft to palpation and non-tender PALPATION: Yes Soft to palpation Extremity: COMMON NORMALS: no joint enlargement GENERAL: Yes edema (3+) Neuro: COMMON NORMALS: patient oriented x3 and moves all extremities S ENSORIUM/ORIENTATION: Yes alert Skin: OTHER: Edema bilateral lower extremities, stasis dermatitis bilaterally, but significant worse on the left, also with erythema, warmth, weeping at the dorsal foot wounds/ulcers. Prior toe amputations. Urinary Catheter Management: Gilliland: Cath Placed During This Visit: yes Reason for Continuing Indwelling Catheter: Acute Urinary Retention or Obstruction Urinary Catheter Date of Insertion: 02/16/24 Urinary Catheter Time of Insertion: 12:32 Data 02/16/24 05:30 02/16/24 05:30 Micro: Microbiology 02/15/24 15:37 Blood Culture - Preliminary Blood NEGATIVE TO DATE 02/15/24 15:35 Blood Culture - Preliminary Blood NEGATIVE TO DATE A&P Assessment and plan (1) Complicated UTI (urinary tract infection): Hematuria without improvement so far. No clots. Has been able to void but gets very short of breath try to get to the edge of the bed to use the urinal. Discussed considering use the urinal in bed placing the urinal sideways, however, that did not work either. We also discussed placing a Gilliland catheter, he states has had difficult experience within the past, requested smaller diameter Gilliland, discussed with nursing staff. Ended up having to place Gilliland catheter as he has been getting seemingly short of breath trying to use the urinal. Reviewed vitals, CBC, BMP, magnesium. Blood culture and urine culture pending. Discussed with case supervisor. Discussed risk of urinary obstruction with hematuria/clots. Monitor for improvement with treatment. IV antibiotic treatment with ceftriaxone, empirically also vancomycin due to cellulitis. Follow-up urine culture. Blood pressure soft again today 102/44. Did receive a dose of Lasix with lower extremity edema. Given 1 dose of albumin. Monitor blood pressures. Normally on doxazosin, monitor blood pressures for now, if steady resume doxazosin. Discussing goals of care he would like to discontinue hospice at current time to treat current medical issues. With hematuria, risk of urinary obstruction. Hold aspirin for now. Prescription with him aspirin as prophylactic. Denies history of SC, CVA. On chronic prednisone, monitor blood pressures, consider stress dose steroids in case of further hypotension. (2) Cellulitis: Reviewed venous duplex, noted no DVT. Reviewed foot x-ray, postsurgical and degenerative changes. Forefoot soft tissue swelling. No acute bony pathology. Continue empiric antibiotic coverage with ceftriaxone, vancomycin. Cellulitis left lower extremity with chronic wounds, noted worsening redness, swelling, warmth to touch. Leukocytosis 12.69. Ceftriaxone as above for UTI, additionally vancomycin. Risk of [place] other toxicity with vancomycin, reassess renal function. (3) CHF exacerbation: Acute exacerbation, he is orthopnea, having to sit upright in ER, edematous, type CHF unknown, obtain echocardiogram. He was hypotensive in ER, will monitor blood pressure first, treat UTI, cellulitis, if blood pressure is steady, start some diuretic. (4) Advanced COPD: Advanced COPD, on chronic prednisone, oxygen, has nebulizer at home. On hospice care prior to hospitalization. Continue breathing treatments, prednisone. Plan Smoking addiction: Encourage cessation. Nicotine replacement as needed. Attestations 2 Medical Necessity Statement*: Continue admission for assessment management of complicated UTI with hematuria, and risk of urinary obstruction, CHF exacerbation in gentleman with soft blood pressure, cellulitis in a gentleman with advanced COPD. Diagnoses Complicated UTI (urinary tract infection) N39.0 Cellulitis L03.90 CHF exacerbation I50.9 Advanced COPD J44.9
[2024-02-17] VITALS (13 sets, daily range): BP systolic 107–149; BP diastolic 51–76; PULSE 79–95; RESP 19–22; TEMP 36.5–37; O2SAT 88–94
[2024-02-17] MEDS: albuterol 2.5 mg/3 mL Neb INHALATION ×3 (02:59→13:36)
[2024-02-17 05:17] LABS: Basophils % 0.3 %; Eosinophils # 0.1 10^3/uL (0.0-0.8); Eosinophils % 0.6 %; Hematocrit 39.1 % (37-53); Lymphocytes # 0.9 10^3/uL (0.8-4.8); Lymphocytes % 6.5 %; Mean Corpuscular HGB Conc 32.5 g/dL (30-55); Mean Corpuscular Hemoglobin 30.8 pg (27-33); Mean Corpuscular Volume 94.9 fl (82-101); Mean Platelet Volume 10.2 fL (7.4-10.4); Monocytes # 0.9 10^3/uL (0.2-0.9); Monocytes % 6.2 %; Neutrophils # 12.26 10^3/uL (1.8-7.7); Nucleated Red Blood Cells % 0 %; Platelet Count 217 10^3/cmm (157-399); Red Blood Count 4.12 10^6/uL (3.85-5.65); Red Cell Distribution Width 13.9 % (12.1-15.1); White Blood Count 14.25 10^3/uL (3.29-11.43)
[2024-02-17 05:38] LABS: Anion Gap 11.7 (5-19); Blood Urea Nitrogen 24 mg/dL (8-23); Calcium 9.3 mg/dL (8.5-10.5); Carbon Dioxide 31 mmol/L (22-29); Chloride 103 mmol/L (98-107); Creatinine Clr Calc Pharmacy 62.0446; Glucose 105 mg/dL (65-115); Osmolality Calculated 298 mOsm/kg (285-295); Potassium 3.7 mmol/L (3.5-5.1); Sodium 142 mmol/L (136-145)
[2024-02-17] MEDS: vancomycin 1,000 MG in sodium chloride 0.9% 250 ML 250 MG IV (06:20)
[2024-02-17] MEDS: doxazosin 1 mg Tablet 2 MG PO (09:05)
[2024-02-17] MEDS: predniSONE 10 mg Tablet PO (09:05)
[2024-02-17] MEDS: cefTRIAXone 1,000 MG in sodium chloride 0.9% (plus) 50 ML 100 MG IV (09:05)
--- NOTE | 2024-02-17 19:06 | PC.NURSE ---
pt c/o having 02 at 4L, stating that he feels he having 0xygen intoxication and had cannulla down on his chin, pt wanting turned back down to 2L, nurse spoke with respiratory therapy and wa given okay to turn pt 02 down to 2 L.
--- NOTE | 2024-02-17 21:18 | P.PN_ITS ---
Subjective 2 Subjective: He is not having a good day overall. He has been weak, he and family tell me he is unable to care for himself at home by himself. Vitals/I&O/Wt Last Vital Signs Temp 98.6 F 02/17/24 19:42 Pulse 89 02/17/24 20:10 Resp 22 H 02/17/24 20:10 BP 136/54 02/17/24 19:42 Pulse Ox 89 L 02/17/24 20:10 O2 Del Method Nasal Cannula 02/17/24 20:10 O2 Flow Rate 2 02/17/24 20:10 02/17/24 02/17/24 02/17/24 06:59 14:59 22:59 Intake Total 540 / 940 600 / 600 200 / 800 Output Total 300 / 1400 Balance 240 / -460 600 / 600 200 / 800 Weight last 48 hrs Weight 54.148 kg Weight 54.148 kg Physical Exam 2 Narrative: Accompanied by family including his son Const: COMMON NORMALS: patient oriented x3 and alert GENERAL APPEARANCE: c ooperative NUTRITIONAL APPEARANCE: underweight ORIENTATION/CONSCIOUSNESS: Yes awake HENMT: COMMON NORMALS: oropharynx normal Neck/C-Spine: COMMON NORMALS: no JVD Resp: COMMON NORMALS: normal respiratory effort and clear to auscultation bilaterally AUSCULTATION: clear to auscultation bilaterally and diminished lung sounds Cardio: COMMON NORMALS: no JVD, regular rhythm, S1 normal heart sound present, S2 normal heart sound present and No murmurs present (Cardio) RHYTHM: regular rhythm HEART SOUNDS: S1 normal heart sound present and S2 normal heart sound present GI: COMMON NORMALS: Normal to inspection, nondistended, normoactive bowel sounds present, Soft to palpation and non-tender PALPATION: Yes Soft to palpation Extremity: COMMON NORMALS: no joint enlargement GENERAL: Yes edema (3+) Neuro: COMMON NORMALS: patient oriented x3 and moves all extremities S ENSORIUM/ORIENTATION: Yes alert Skin: OTHER: Edema bilateral lower extremities, stasis dermatitis bilaterally, but significant worse on the left, also with erythema, warmth, weeping at the dorsal foot wounds/ulcers. Prior toe amputations. Urinary Catheter Management: Gilliland: Cath Placed During This Visit: yes Reason for Continuing Indwelling Catheter: Acute Urinary Retention or Obstruction Urinary Catheter Date of Insertion: 02/16/24 Urinary Catheter Time of Insertion: 12:32 Data 02/17/24 04:30 02/17/24 04:30 Micro: Microbiology 02/15/24 13:03 Urine Culture - Preliminary Urine,Clean Catch A&P Assessment and plan (1) Complicated UTI (urinary tract infection): Chemistry with improvement, jaylen-colored urine in Gilliland catheter. Reviewed vitals, CBC, BMP, urine culture, blood culture. He gets quite dyspneic getting to the edge of the bed. Gilliland catheter maintained for now. Continue treatment of UTI. He and family tell me he cannot manage things at home by himself, not safe to be there alone. Discussed with family and test case developer consideration of options. Family will consider whether one of the family can possibly move in with him versus alternative possibilities as per discussion with case management. They are considering return home with hospice, would rather avoid if possible going to a facility, but may consider if no other option. Urine culture so far unrevealing, more than 100,000 mixed urogenital collette. Discussed risk of urinary obstruction with hematuria/clots. Monitor for improvement with treatment. IV antibiotic treatment with ceftriaxone, empirically also vancomycin due to cellulitis. Follow-up urine culture. Blood pressure soft again today 102/44. Did receive a dose of Lasix with lower extremity edema. Given 1 dose of albumin. Monitor blood pressures. Normally on doxazosin, monitor blood pressures for now, if steady resume doxazosin. Discussing goals of care he would like to discontinue hospice at current time to treat current medical issues. With hematuria, risk of urinary obstruction. Hold aspirin for now. Prescription with him aspirin as prophylactic. Denies history of [place], CVA. On chronic prednisone, monitor blood pressures, consider stress dose steroids in case of further hypotension. (2) Cellulitis: Improving cellulitis. Improving erythema left foot. Good improvement in edema. Wrinkling of the dorsal foot, no weeping at the ulcers. Still significant amount of erythema. Continue IV antibiotics. Continue coverage with vancomycin due to MRSA risk. Monitor kidney function due to risk of kidney injury with vancomycin. Reviewed venous duplex, noted no DVT. Reviewed foot x-ray, postsurgical and degenerative changes. Forefoot soft tissue swelling. No acute bony pathology. Continue empiric antibiotic coverage with ceftriaxone, vancomycin. Cellulitis left lower extremity with chronic wounds, noted worsening redness, swelling, warmth to touch. Leukocytosis 12.69. Ceftriaxone as above for UTI, additionally vancomycin. Risk of [place] other toxicity with vancomycin, reassess renal function. (3) CHF exacerbation: Responded well to dose of IV Lasix. He only weighs 54 kg and gets dehydrated quite easily, will hold off additional Lasix for now. Reassess volume status. Reassess electrolytes and kidney function. Acute exacerbation, he is orthopnea, having to sit upright in ER, edematous, type CHF unknown, obtain echocardiogram. He was hypotensive in ER, will monitor blood pressure first, treat UTI, cellulitis, if blood pressure is steady, start some diuretic. (4) Advanced COPD: Advanced COPD, on chronic prednisone, oxygen, has nebulizer at home. On hospice care prior to hospitalization. Continue breathing treatments, prednisone. Plan Smoking addiction: Encourage cessation. Nicotine replacement as needed. Attestations 2 Medical Necessity Statement*: Continue hospitalization for assessment of management of complicated UTI, cellulitis, post discharge planning and arrangements. and High MDM includes amount and/or complexity of data reviewed/ordered [ resulted lab(s)/test(s), ordered lab(s)/test(s), independent historian and other healthcare professional discussion] and described risk of complication, morbidity or mortality of management as documented Diagnoses Complicated UTI (urinary tract infection) N39.0 Cellulitis L03.90 CHF exacerbation I50.9 Advanced COPD J44.9
--- NOTE | 2024-02-17 23:38 | PC.NURSE ---
pt refused to be moved and reposition in bed, stated i do it myself, it is hard to get in a comfortable spot .
[2024-02-18] VITALS (9 sets, daily range): BP systolic 122–135; BP diastolic 53–70; PULSE 82–93; RESP 16–20; TEMP 36.7; O2SAT 91–99
[2024-02-18 01:09] LABS: Basophils % 0.1 %; Eosinophils % 0.1 %; Lymphocytes # 0.6 10^3/uL (0.8-4.8); Lymphocytes % 6.1 %; Mean Corpuscular HGB Conc 33.1 g/dL (30-55); Mean Corpuscular Hemoglobin 30.8 pg (27-33); Mean Corpuscular Volume 93.1 fl (82-101); Mean Platelet Volume 9.7 fL (7.4-10.4); Monocytes # 0.5 10^3/uL (0.2-0.9); Monocytes % 5.6 %; Neutrophils # 8.22 10^3/uL (1.8-7.7); Neutrophils % 87.8 %; Nucleated Red Blood Cells % 0 %; Platelet Count 189 10^3/cmm (157-399); Red Blood Count 4.19 10^6/uL (3.85-5.65); Red Cell Distribution Width 14.1 % (12.1-15.1); White Blood Count 9.36 10^3/uL (3.29-11.43)
[2024-02-18 01:26] LABS: Anion Gap 10.7 (5-19); Blood Urea Nitrogen 25 mg/dL (8-23); Calcium 8.8 mg/dL (8.5-10.5); Carbon Dioxide 31 mmol/L (22-29); Chloride 102 mmol/L (98-107); Creatinine Clr Calc Pharmacy 62.0446; Glucose 104 mg/dL (65-115); Osmolality Calculated 295 mOsm/kg (285-295); Potassium 3.7 mmol/L (3.5-5.1); Sodium 140 mmol/L (136-145); Vancomycin Trough 7.4 ug/mL (10-15)
[2024-02-18] MEDS: vancomycin 1,000 MG in sodium chloride 0.9% 250 ML 250 MG IV ×2 (01:51→13:54)
--- NOTE | 2024-02-18 03:14 | PC.NURSE ---
respiratory placed oxymask and increased 02 to 5L due to 02 sat in 80's, pt request for 02 sat to be rechecked and it was 99%, pt requested for 02 to be turned down to 3 keeping oxymask. pt currently on 3L
[2024-02-18] MEDS: cefTRIAXone 1,000 MG in sodium chloride 0.9% (plus) 50 ML 100 MG IV (08:08)
[2024-02-18] MEDS: predniSONE 10 mg Tablet PO (08:56)
[2024-02-18] MEDS: doxazosin 1 mg Tablet 2 MG PO (08:56)
--- NOTE | 2024-02-18 11:57 | CTR_ITS ---
PROCEDURE INFORMATION: Exam: CT Right Lower Extremity With Contrast, Foot Exam date and time: 02/18/2024 4:24 PM Age: 73 years old Clinical indication: Swelling, leg or foot; Additional info: Assess for deep infection/om TECHNIQUE: Imaging protocol: CT of the right lower extremity with intravenous contrast was performed. Exam focused on the foot. Radiation optimization: All CT scans at this facility use at least one of these dose optimization techniques: automated exposure control; mA and/or kV adjustment per patient size (includes targeted exams where dose is matched to clinical indication); or iterative reconstruction. Contrast material: [id number]; Contrast volume: 70 ml; Contrast route: INTRAVENOUS (IV); COMPARISON: No relevant prior studies available. RADIATION DOSE METRICS: Total DLP (mGy-cm): 157.45 FINDINGS: Bones/joints: No evidence of fracture or subluxation. Tarsometatarsal alignment is maintained. There is chronic deformity of the distal 5th metatarsal, possibly sequela of remote trauma or remote osteomyelitis. Chronic deformity of the distal phalanx tuft great toe as well. No evidence of acute osseous erosion. Moderate tibiotalar osteoarthritis with mild flattening of the talar dome. Soft tissues: There appears to be soft tissue ulceration of the distal aspects of the great toe as well as the 2nd through 4th toes. There is hyperdense material along the plantar aspect of the lateral forefoot, possibly reflecting packing type material. No discrete fluid collection to suggest abscess. No hematoma. There is diffuse soft tissue edema compatible with cellulitis. No soft tissue air to suggest gas-forming infection. Severe muscular fatty atrophy is noted. CT/CT foot RT w con [id number] IMPRESSION: 1. Diffuse soft tissue edema without evidence of acute osseous erosion, fracture or subluxation. 2. Chronic deformity of the distal phalanx tuft great toe as well as the distal 5th metatarsal, possibly sequela of remote trauma or infection.
--- NOTE | 2024-02-18 11:57 | CTR_ITS ---
PROCEDURE INFORMATION: Exam: CT Left Lower Extremity With Contrast, Ankle Exam date and time: 02/18/2024 4:27 PM Age: 73 years old Clinical indication: Swelling, leg or foot; Additional info: Assess for deep infection/om TECHNIQUE: Imaging protocol: CT of the left lower extremity with intravenous contrast was performed. Exam focused on the ankle. Radiation optimization: All CT scans at this facility use at least one of these dose optimization techniques: automated exposure control; mA and/or kV adjustment per patient size (includes targeted exams where dose is matched to clinical indication); or iterative reconstruction. Contrast material: [id number]; Contrast volume: 70 ml; Contrast route: INTRAVENOUS (IV); COMPARISON: CR (LOW EXM, ) 02/15/2024 6:08 PM RADIATION DOSE METRICS: Total DLP (mGy-cm): 140.66 FINDINGS: Bones/joints: No evidence of acute osseous erosion, fracture or subluxation. Solid subtalar, talonavicular and calcaneocuboid osseous fusion. No significant joint effusion. 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 Lateral, medial and posterior malleoli are intact. Soft tissues: Diffuse superficial soft tissue edema and skin thickening compatible with cellulitis. No discrete fluid collection to suggest abscess. No hematoma. No evidence of soft tissue air to suggest fasciitis. There is soft tissue irregularity/ulceration, particularly of the medial aspect of the distal left lower extremity. Tendons are grossly intact. There is severe muscular fatty atrophy. CT/CT ankle LT w con [id number] IMPRESSION: 1. Diffuse superficial soft tissue edema and skin thickening compatible with cellulitis. No evidence of discrete fluid collection or acute osseous erosion.
--- NOTE | 2024-02-18 12:10 | PM.PN ---
Subjective Subjective: Given the hematuria has resolved and swelling has been coming down in the left with yesterday, today he states that he feels worse than he had been 4 days ago, she also states that he bleeding from the ulcers on his left foot overnight. Additionally with the swelling he has not been able to fit his lower extremity braces. Vitals/I&O/Wt Last Vital Signs Temp 98.1 F 02/18/24 03:41 Pulse 85 02/18/24 11:34 Resp 16 02/18/24 11:34 BP 125/56 02/18/24 11:34 Pulse Ox 95 02/18/24 11:34 O2 Del Method Oxymask 02/18/24 11:34 O2 Flow Rate 4 02/18/24 11:34 02/17/24 02/18/24 02/18/24 22:59 06:59 14:59 Intake Total 550 / 1150 300 / 1450 410 / 410 Output Total 900 / 900 Balance 550 / 1150 -600 / 550 410 / 410 Weight last 48 hrs Weight 54.148 kg Physical Exam Narrative: Accompanied by family including his son Const: COMMON NORMALS: patient oriented x3 and alert GENERAL APPEARANCE: cooperative NUTRITIONAL APPEARANCE: underweight ORIENTATION/CONSCIOUSNESS: Yes awake HENMT: COMMON NORMALS: oropharynx normal Neck/C-Spine: COMMON NORMALS: no JVD Resp: COMMON NORMALS: normal respiratory effort and clear to auscultation bilaterally AUSCULTATION: clear to auscultation bilaterally and diminished lung sounds Cardio: COMMON NORMALS: no JVD, regular rhythm, S1 normal heart sound present, S2 normal heart sound present and No murmurs present (Cardio) RHYTHM: regular rhythm HEART SOUNDS: S1 normal heart sound present and S2 normal heart sound present GI: COMMON NORMALS: Normal to inspection, nondistended, normoactive bowel sounds present, Soft to palpation and non-tender PALPATION: Yes Soft to palpation Extremity: COMMON NORMALS: no joint enlargement GENERAL: Yes edema (3+) Neuro: COMMON NORMALS: patient oriented x3 and moves all extremities SENSORIUM/ORIENTATION: Yes alert Skin: OTHER: Edema bilateral lower extremities, stasis dermatitis bilaterally, worse on the left. Subsiding erythema, no weeping at the dorsal foot, some weeping from wounds/ulcers. Prior toe amputations. Urinary Catheter Management: Gilliland: Cath Placed During This Visit: yes Reason for Continuing Indwelling Catheter: Acute Urinary Retention or Obstruction Urinary Catheter Date of Insertion: 02/16/24 Urinary Catheter Time of Insertion: 12:32 Data 02/18/24 00:45 02/18/24 00:45 Micro: Microbiology 02/15/24 13:03 Urine Culture - Final Urine,Clean Catch A&P Assessment and plan (1) Cellulitis: This morning he reports he is not feeling quite well, states that he is feeling worse than he had been 4 days ago, he is unable to ambulate, cannot fit into his braces, additionally is discouraged because overnight had bleeding from the ulcers on his left foot, feels that he has not gotten better to the point of being able to return home where he will just return to , without getting additional care. We had an extensive discussion with him together with case number, as well as with patient's daughter on the phone speaker with regards to his wishes with regards to goals of care. He states that he would like to get better in terms of cellulitis, would want to receive additional assessment and treatment, including further imaging, or in case of osteomyelitis IV antibiotics. As per discussion given his goals of care he will not at current time be returning with hospice, will be pursuing arrangements for home health care, and is agreeable to follow-up with wound care clinic. As per discussion we discussed additional imaging to assess for deeper tissue infection versus osteomyelitis which she would like to pursue but declines MRI due to significant orthopnea with his advanced COPD as well as severe claustrophobia/anxiety. Discussed limitations of CT scan with more limited visualization of positive osteomyelitis, need for contrast study, he would like to proceed with CT. Requested. Additionally discussed with him and he is agreeable with consultation with podiatry. Discussed with group segment consultant, appreciate assessment, he underwent bedside debridement of the ulcers. Podiatry is in agreement his cellulitis is on a course and improving. Per discussion with orthopedics given he has swelling in left lower extremity with anticipated slow improvement and cannot fit into his braces which limits his mobility they may consider if an alternative temporary orthosis may be available. Case management will work on trying to set up home health care for him. As per discussion with his daughter as well he requires [id number] support and care, and she is going to be moving into his place to stay with him at current time. Patient would like to be more aggressive with aggressive treatment of his foot infections to try to assist him in becoming more mobile, but does not discount consideration of returning to hospice at a later time especially should he not succeed in his goal. Continue ceftriaxone and coverage with vancomycin due to MRSA risk. Monitor kidney function due to risk of kidney injury with vancomycin. Reviewed vitals, CBC, BMP, vancomycin trough, podiatry note. Discussed with group segment consultant, discussed with sales development manager. Venous duplex, noted no DVT. Reviewed foot x-ray, postsurgical and degenerative changes. Forefoot soft tissue swelling. No acute bony pathology. Continue empiric antibiotic coverage with ceftriaxone, vancomycin. Cellulitis left lower extremity with chronic wounds, noted worsening redness, swelling, warmth to touch. Leukocytosis 12.69. Ceftriaxone as above for UTI, additionally vancomycin. Risk of [place] other toxicity with vancomycin, reassess renal function. (2) Complicated UTI (urinary tract infection): Hematuria resolved. Reviewed urine culture. Remove Gilliland catheter. Chemistry with improvement, jaylen-colored urine in Gilliland catheter. Reviewed vitals, CBC, BMP, urine culture, blood culture. He gets quite dyspneic getting to the edge of the bed. Gilliland catheter maintained for now. Continue treatment of UTI. He and family tell me he cannot manage things at home by himself, not safe to be there alone. Discussed with family and sales development manager consideration of options. Family will consider whether one of the family can possibly move in with him versus alternative possibilities as per discussion with case management. They are considering return home with hospice, would rather avoid if possible going to a facility, but may consider if no other option. Urine culture so far unrevealing, more than 100,000 mixed urogenital collette. Discussed risk of urinary obstruction with hematuria/clots. Monitor for improvement with treatment. IV antibiotic treatment with ceftriaxone, empirically also vancomycin due to cellulitis. Follow-up urine culture. Blood pressure soft again today 102/44. Did receive a dose of Lasix with lower extremity edema. Given 1 dose of albumin. Monitor blood pressures. Normally on doxazosin, monitor blood pressures for now, if steady resume doxazosin. Discussing goals of care he would like to discontinue hospice at current time to treat current medical issues. With hematuria, risk of urinary obstruction. Hold aspirin for now. Prescription with him aspirin as prophylactic. Denies history of [place], CVA. On chronic prednisone, monitor blood pressures, consider stress dose steroids in case of further hypotension. (3) CHF exacerbation: Responded well to dose of IV Lasix. He only weighs 54 kg and gets dehydrated quite easily, will hold off additional Lasix for now. Reassess volume status. Reassess electrolytes and kidney function. Acute exacerbation, he is orthopnea, having to sit upright in ER, edematous, type CHF unknown, obtain echocardiogram. He was hypotensive in ER, will monitor blood pressure first, treat UTI, cellulitis, if blood pressure is steady, start some diuretic. (4) Advanced COPD: Advanced COPD, on chronic prednisone, oxygen, has nebulizer at home. On hospice care prior to hospitalization. Continue breathing treatments, prednisone. Plan Smoking addiction: Encourage cessation. Nicotine replacement as needed. Fungating growth on the superior right ear, depending on goals of care will need follow-up for additional assessment, excision/biopsy. Attestations Medical Necessity Statement*: Continue hospitalization for assessment of management of cellulitis gentleman with [id number]-Iugrh disease, foot drop, inability to ambulate with lower extremity swelling, cellulitis, acute discussion and post discharge planning and arrangements. and High MDM includes amount and/or complexity of data reviewed/ordered [ previous or external records, resulted lab(s)/test(s), ordered lab(s)/test(s), independent historian and other healthcare professional discussion] and described risk of complication, morbidity or mortality of management as documented Diagnoses Cellulitis L03.90 Complicated UTI (urinary tract infection) N39.0 CHF exacerbation I50.9 Advanced COPD J44.9
--- NOTE | 2024-02-18 13:38 | P.CONIM_ITS ---
Providers/Reason For Consult 2 Consulting Physician/Specialty*: Dr. James Parker, DPNikolas/Podiatry Reason for Consult*: Bilateral lower extremity wounds Attending Physician: Sukhi Weston Primary Care Provider: Lana Mueller MD History of Present Illness History of Present Illness Patient is a 73-year-old male with past medical history significant for COPD, CHF, Charcot Kaykay tooth and chronic ulcerations to bilateral lower extremities in the presence of peripheral vascular disease who presented to the emergency department on 02/15/2024 with complaints of right-sided back pain. Prior to presentation to the emergency department the patient was on hospice. According to the patient hospice nurse has been addressing bilateral lower extremity wounds with Unna boot dressings 3 times weekly. Workup in the emergency department revealed urinary tract infection. Patient was admitted for further workup, treatment. Due to lower extremity ulcerations and concern for cellulitis podiatry was consulted to evaluate patient and provide further recommendations. Patient has bracing for the [id number]-Yuqzx-Dyjfz disease. However, due to increased swelling of bilateral lower extremities and presence of ulcerations patient is unable to wear the bracing. Due to inability to wear the bracing mobility is limited. Review of Systems 2 General: Reports: 10 or more systems reviewed and unremarkable except in HPI and below Const: Denies: fever(s), chills, body aches or change in appetite Eyes: Denies: change in vision or blurry vision Card: Denies: chest pain, palpitations or irregular heart rhythm Resp: Denies: dyspnea GI: Denies: abdominal pain, nausea, vomiting or diarrhea Musc: Reports: joint stiffness Skin/Breast: Reports: non-healing lesions and lesions Neuro: Reports: numbness in extremities Medications/Allergies Home Medications Medication Instructions Recorded Confirmed Last Taken Type multivitamin (Daily Multi-Vitamin 1 tab PO DAILY 03/27/20 02/15/24 Unknown History tablet) naproxen 500 mg tablet,delayed 500 mg PO DAILY 03/27/20 02/15/24 02/14/24 History release (EC-Naprosyn) nitroglycerin 0.4 mg sublingual 0.4 mg sublingual Q5M PRN chest 01/27/21 02/15/24 Unknown Rx tablet pain #25 tabs albuterol sulfate 2.5 mg/3 mL 2.5 mg (3 mL) inhalation Q6H 30 02/21/21 02/15/24 Unknown Rx (0.083 %) solution for nebulization days #360 mL albuterol sulfate 90 mcg/actuation 2 puff inhalation Q4H PRN 02/08/23 02/15/24 Unknown Rx aerosol inhaler (Proventil HFA) shortness of breath or wheezing 30 days #8.5 grams lorazepam 1 mg tablet 1 mg PO DAILY PRN 02/08/23 02/15/24 Unknown Rx anxiety/smothering #30 tabs aspirin 81 mg tablet,delayed 81 mg PO DAILY 02/15/24 02/15/24 02/14/24 History release doxazosin 2 mg tablet 2 mg PO DAILY 02/15/24 02/15/24 02/14/24 History furosemide 20 mg tablet 20 mg PO DAILY 02/15/24 02/15/24 02/14/24 History morphine concentrate 100 mg/5 mL See Rx Instructions .Route .COMPLEX 02/15/24 02/15/24 02/15/24 History (20 mg/mL) oral solution potassium chloride 10 mEq 10 meq PO DAILY 02/15/24 02/15/24 02/14/24 History capsule,extended release prednisone 10 mg tablet 10 mg PO DAILY 02/15/24 02/15/24 02/14/24 History Allergies Allergy/AdvReac Type Severity Reaction Status Date / Time Sulfa (Sulfonamide Allergy rash Verified 02/08/23 12:03 Antibiotics) Current Medications Generic Name Dose Route Start Last Admin Trade Name Freq PRN Reason Stop Dose Admin Albuterol Sulfate 2.5 mg 02/15/24 20:00 02/18/24 08:41 Albuterol 2.5 Mg/3 Ml Neb INHALATION Not Given Q6H.RESP SAILAJA Doxazosin Mesylate 2 mg 02/16/24 09:00 02/18/24 08:56 Doxazosin 1 Mg Tablet PO 2 mg DAILY SAILAJA Administration Enoxaparin Sodium 30 mg 02/15/24 18:30 02/17/24 18:24 Enoxaparin 30 Mg/0.3 Ml Syringe SUBCUT Not Given Q24H SAILAJA Furosemide 20 mg 02/16/24 11:20 02/16/24 11:52 Furosemide 10 Mg/Ml Sdv 2ml IVP 20 mg DAILY SAILAJA Administration Ceftriaxone Sodium 1,000 mg/ 50 mls @ 100 mls/hr 02/16/24 09:00 02/18/24 09:06 Sodium Chloride IV Infused Q24H SAILAJA Infusion Protocol Vancomycin HCl 1,000 mg/ 250 mls @ 250 mls/hr 02/18/24 01:45 02/18/24 03:11 Sodium Chloride IV Infused Q12H SAILAJA Infusion Morphine Sulfate 10 mg 02/15/24 20:00 02/16/24 23:24 Morphine 10 Mg/0.5 Ml Oral Liq Ud PO 10 mg Q1H PRN Administration PAIN FOR PALLIATIVE CARE Prednisone 10 mg 02/16/24 09:00 02/18/24 08:56 Prednisone 10 Mg Tablet PO 10 mg DAILY SAILAJA Administration PFSH Acute 2 PFSH: Medical History (Updated 02/18/24 @ 20:15 by James Parker DPM) COPD (chronic obstructive pulmonary disease) Osteomyelitis of metatarsal Squamous cell carcinoma Prostatism Angina at rest Nicotine addiction Restrictive lung disease Charcot-Kaykay disease Foot drop, bilateral History of progressive weakness Surgical History (Updated 02/15/24 @ 19:21 by Sukhi Weston MD) History of amputation of great toe Social History Smoking and tobacco/nicotine status: current every day tobacco/nicotine user cigarettes Packs smoked per day: 0.5 Years cigarettes smoked: 30 Alcohol intake: never Substance/Drug Use: never Vitals/I&O/Wt Last Vital Signs Temp 98.1 F 02/18/24 03:41 Pulse 85 02/18/24 11:34 Resp 16 02/18/24 11:34 BP 125/56 02/18/24 11:34 Pulse Ox 95 02/18/24 11:34 O2 Del Method Oxymask 02/18/24 11:34 O2 Flow Rate 4 02/18/24 11:34 02/17/24 02/18/24 02/18/24 22:59 06:59 14:59 Intake Total 550 / 1150 300 / 1450 470 / 470 Output Total 900 / 900 Balance 550 / 1150 -600 / 550 470 / 470 Weight last 48 hrs Weight 119 lb 6 oz Physical Exam 2 Narrative: BELOW IS A FOCUSED LOWER EXTREMITY EXAM GENERAL: A&O x 3 VASCULAR: DP/PT pulses palpable 2/4 with CFT intact, <3seconds to distal digits. +2 edema to left lower extremity. DP/PT pulses are audibly biphasic on hand- held Doppler at bedside DERMATOLOGICAL: Multiple ulcerations to left lower extremity with the largest being on the posterior aspect of the leg extending from the mid calf down to the heel, this is superficial and down to the level of the dermis. Multiple full- thickness ulcerations to the dorsum of the left foot with 100% fibrotic base as well as full-thickness ulceration to medial aspect of left ankle at the level of the medial malleolus with 100% fibrotic base. Stasis dermatitis changes to left lower extremity with mild erythema. No proximal lymphangitic streaking. No active purulence. Posterior leg wound is weeping clear fluid secondary to venous stasis MUSCULOSKELETAL: Tenderness with palpation of lower extremity ulcerations. No pain with calf squeeze. Chpuhni-Luwxs-Vsvvc deformity with high cavus foot type and contracted metatarsophalangeal joints NEUROLOGICAL: Neurological sensation to the affected foot and ankle is present through L4-S1 dermatomes with no hyper/hypoesthesias, negative Tinel or Valleix's sign IMAGING: Three-view x-rays of left foot taken in the emergency department were personally interpreted by me which show fifth metatarsal resection from previous surgery no subcutaneous emphysema noted. No cortical erosions or evidence of osteomyelitis. CT scan of bilateral lower extremities with person interpreted by me which show findings consistent with cellulitis of left leg. No drainable accumulation of fluid. No evidence of osteomyelitis. Postdebridement Urinary Catheter Management: [place]: Cath Placed During This Visit: yes Reason for Continuing Indwelling Catheter: Acute Urinary Retention or Obstruction Urinary Catheter Date of Insertion: 02/16/24 Urinary Catheter Time of Insertion: 12:32 Data 02/18/24 00:45 02/18/24 00:45 Micro: Microbiology 02/15/24 13:03 Urine Culture - Final Urine,Clean Catch A&P Assessment and plan (1) Cellulitis: (2) Venous stasis ulcer: (3) Peripheral vascular disease: Plan -Venous stasis ulcerations -Labs and vitals reviewed -WBC 9.3 -ESR pending -CRP 8.5 VSS -Cultures blood cultures NGTD -Abx Vanco/Rocephin -Diet: Okay for diet from podiatry standpoint -Patient has cellulitis to left leg secondary to venous insufficiency. This appearance is exacerbated by dependent rubor from peripheral vascular disease and venous insufficiency. Wounds are stable. No underlying fluctuance or signs of deep space abscess. -Dorsal left foot wounds underwent mechanical debridement with 4 x 4 gauze to remove fibrotic slough. Healthy bleeding granular wound bed noted below. -No surgical intervention by podiatry during this admission. -Pain Mgmt: Per primary team -Weight bearing: Weightbearing as tolerated to bilateral lower extremities. Recommend elevation in bed if possible. Patient COPD may limit this -Dressings:Daily dressing change consisting of nonadherent silver alginate dressing to bilateral wounds followed by ABD pads, Kerlix and Fadi wrap compression up to the level of the knee. -Continue current Abx therapy, local wound care with focus on compression therapy -Trend labs -Discharge plan: Patient is okay to discharge from podiatry standpoint once deemed medically stable. Recommend discharging on oral antibiotics, broad- spectrum for left lower leg cellulitis. Regardless the patient is discharged to hospice or home with home health he will need compression dressing changes 3 times weekly. Patient will not be able to use his custom bracing until his wounds have healed as these will impede wound healing and rub on the areas of concern causing pain for the patient. Recommend bilateral PRAFO boot to offload areas of ulceration and provide patient some stability. Appreciate case management help with this. Upon discharge from the hospital recommend follow-up at the wound care center. -Podiatry following Coding Level of Care Code Acute Code for [facility] Fwd Diagnoses Cellulitis L03.90 Venous stasis ulcer I83.009; L97.909 Peripheral vascular disease I73.9
[2024-02-18] MEDS: albuterol 2.5 mg/3 mL Neb INHALATION (14:03)
[2024-02-18] MEDS: LORazepam 2 mg/mL INJ 10 mL MDV 0.5 MG IVP (16:17)
[2024-02-18] MEDS: iohexol 350 mg/mL 500 mL Btl (per mL) IV ×2 (16:28→16:29)
[2024-02-18] MEDS: enoxaparin 30 mg/0.3 mL Syringe SUBCUT (16:56)
[2024-02-19] VITALS (9 sets, daily range): BP systolic 115–136; BP diastolic 52–72; PULSE 73–98; RESP 16–22; TEMP 36–36.8; O2SAT 92–100; BMI 18.1
[2024-02-19] MEDS: vancomycin 1,000 MG in sodium chloride 0.9% 250 ML 250 MG IV ×2 (01:50→14:32)
[2024-02-19 05:26] LABS: Erythrocyte Sedimentation Rate 16 mm/hr (0-10)
[2024-02-19 05:45] LABS: Alanine Aminotransferase 55 U/L (0-41); Albumin Level 3.4 g/dL (3.5-5.2); Alkaline Phosphatase 59 U/L (40-130); Aspartate Amino Transferase 76 U/L (0-40); Blood Urea Nitrogen 23 mg/dL (8-23); Calcium 9.3 mg/dL (8.5-10.5); Carbon Dioxide 28 mmol/L (22-29); Chloride 104 mmol/L (98-107); Creatinine Clr Calc Pharmacy 62.0446; Globulin 3.4 g/dL (1.3-4.6); Glucose 94 mg/dL (65-115); Osmolality Calculated 299 mOsm/kg (285-295); Sodium 143 mmol/L (136-145); Total Bilirubin 0.3 mg/dL (0.15-1.2); Total Protein 6.8 g/dL (6.6-8.7)
[2024-02-19] MEDS: doxazosin 1 mg Tablet 2 MG PO (08:49)
[2024-02-19] MEDS: predniSONE 10 mg Tablet PO (08:49)
[2024-02-19] MEDS: cefTRIAXone 1,000 MG in sodium chloride 0.9% (plus) 50 ML 100 MG IV (08:54)
--- NOTE | 2024-02-19 21:24 | P.PN_ITS ---
Subjective 2 Subjective: She had a miserable night, had difficult time trying to find a position that he could sleep in due to dyspnea, neuropathy. Had to adjust his bed. Vitals/I&O/Wt Last Vital Signs Temp 96.8 F L 02/19/24 19:56 Pulse 77 02/19/24 20:10 Resp 18 02/19/24 20:10 BP 117/62 02/19/24 19:56 Pulse Ox 98 02/19/24 20:10 O2 Del Method Oxymask 02/19/24 20:10 O2 Flow Rate 3 02/19/24 20:10 02/19/24 02/19/24 02/19/24 06:59 14:59 22:59 Intake Total 550 / 1370 530 / 530 930 / 1460 Output Total 1200 / 1200 650 / 650 Balance -650 / 170 530 / 530 280 / 810 Weight last 48 hrs Weight 54.114 kg Physical Exam 2 Narrative: Accompanied by family including his son and [id number] Const: COMMON NORMALS: patient oriented x3 and alert GENERAL APPEARANCE: c ooperative NUTRITIONAL APPEARANCE: underweight ORIENTATION/CONSCIOUSNESS: Yes awake HENMT: COMMON NORMALS: oropharynx normal Neck/C-Spine: COMMON NORMALS: no JVD Resp: COMMON NORMALS: normal respiratory effort and clear to auscultation bilaterally AUSCULTATION: clear to auscultation bilaterally and diminished lung sounds Cardio: COMMON NORMALS: no JVD, regular rhythm, S1 normal heart sound present, S2 normal heart sound present and No murmurs present (Cardio) RHYTHM: regular rhythm HEART SOUNDS: S1 normal heart sound present and S2 normal heart sound present GI: COMMON NORMALS: Normal to inspection, nondistended, normoactive bowel sounds present, Soft to palpation and non-tender PALPATION: Yes Soft to palpation Extremity: COMMON NORMALS: no joint enlargement GENERAL: Yes edema (3+) Neuro: COMMON NORMALS: patient oriented x3 and moves all extremities S ENSORIUM/ORIENTATION: Yes alert Skin: OTHER: Edema bilateral lower extremities, stasis dermatitis bilaterally, worse on the left. Subsiding erythema, no weeping at the dorsal foot, some weeping from wounds/ulcers. Prior toe amputations. Urinary Catheter Management: [place]: Cath Placed During This Visit: yes Reason for Continuing Indwelling Catheter: Other Urinary Catheter Date of Insertion: 02/16/24 Urinary Catheter Time of Insertion: 12:32 Data 02/18/24 00:45 02/19/24 04:27 A&P Assessment and plan (1) Cellulitis: Reviewed vitals, ESR, CMP, reviewed podiatry note. Discussed with patient and his family. He states that his equipment has been picked up from home including his oxygen, wheelchair, shower chair, and other equipment now that he will be transitioning from hospice to home health. This equipment will need to be reordered. Additionally discussed with him orthoses documented by podiatry, however, no case management available on the weekend. He will need home O2 evaluation prior to discharge, as well as orthoses, although will need a wheelchair as likely may not be able to ambulate without his custom braces. He will be returning home with his will be staying with him to continue care. In the meantime continue antibiotics for cellulitis, elevate lower extremity, compression dressing has been applied by podiatry. This should hopefully help with reducing swelling. Orthoses are recommended until his wounds are healing as he likely may not heal well if he tries to wear his brace is too early. Follow-up CBC, chemistry. Reviewed blood culture, so far preliminary culture remaining negative. Venous duplex, noted no DVT. Reviewed foot x-ray, postsurgical and degenerative changes. Forefoot soft tissue swelling. No acute bony pathology. (2) Complicated UTI (urinary tract infection): Hematuria resolved. Reviewed urine culture. Discussed with him removal of Gilliland catheter, but he states he gets quite dyspneic having to try to stand up to urinate in the urinal, and is also unable to do that currently without his braces. Cannot use the urinal sitting down. Hematuria resolved. Urine culture unrevealing. Discussed risk of urinary obstruction with hematuria/clots. Improvement with treatment. Possibly passed a small stone. IV antibiotic treatment with ceftriaxone, empirically also vancomycin due to cellulitis. Resumed doxazosin. With hematuria, risk of urinary obstruction. Hold aspirin for now. Per discussion with him aspirin as prophylactic. Denies history of [place], CVA. On chronic prednisone, monitor blood pressures, consider stress dose steroids in case of further hypotension. (3) CHF exacerbation: Appears mostly euvolemic at this time. No additional Lasix given. Reassess volume status. Echocardiogram reviewed, normal ejection fraction, relative hypokinesia of apical septal segment. Thickened mitral valve. No pericardial effusion. Technically somewhat limited study. Responded well to dose of IV Lasix. He only weighs 54 kg and gets dehydrated quite easily, will hold off additional Lasix for now. Reassess volume status. Reassess electrolytes and kidney function. (4) Advanced COPD: Renew oral morphine with Ativan COPD with air hunger, anxiety. Will need home O2 and oxygen for home use at discharge as oxygen has been taken back by hospice company. Advanced COPD, on chronic prednisone, oxygen, has nebulizer at home. On hospice care prior to hospitalization. Continue breathing treatments, prednisone. Plan Smoking addiction: Encourage cessation. Nicotine replacement as needed. Fungating growth on the superior right ear. He states that he previously followed up with ENT and was offered excision, states it was found to be a basal cell carcinoma. He is declining to pursue further assessment and treatment. Attestations 2 Medical Necessity Statement*: Continue hospitalization for assessment of management of cellulitis gentleman with Alttuzc-Ifsqu-Urfdb disease, foot drop, inability to ambulate with lower extremity swelling, cellulitis, acute discussion and post discharge planning and arrangements now that he has discontinued hospice. Diagnoses Cellulitis L03.90 Complicated UTI (urinary tract infection) N39.0 CHF exacerbation I50.9 Advanced COPD J44.9
[2024-02-19] MEDS: morphine 10 mg/0.5 mL oral liq UD PO (22:23)
[2024-02-20] VITALS (12 sets, daily range): BP systolic 118–140; BP diastolic 55–78; PULSE 71–86; RESP 16–20; TEMP 36.3–36.9; O2SAT 94–100
[2024-02-20] MEDS: vancomycin 1,000 MG in sodium chloride 0.9% 250 ML 250 MG IV ×2 (02:21→14:29)
[2024-02-20 05:18] LABS: Basophils % 0.2 %; Eosinophils # 0.1 10^3/uL (0.0-0.8); Eosinophils % 0.7 %; Lymphocytes # 1.3 10^3/uL (0.8-4.8); Lymphocytes % 15.5 %; Mean Corpuscular HGB Conc 31.2 g/dL (30-55); Mean Corpuscular Volume 96.2 fl (82-101); Mean Platelet Volume 9.6 fL (7.4-10.4); Monocytes # 0.7 10^3/uL (0.2-0.9); Monocytes % 8.3 %; Neutrophils # 6.18 10^3/uL (1.8-7.7); Neutrophils % 74.8 %; Nucleated Red Blood Cells % 0 %; Platelet Count 197 10^3/cmm (157-399); Red Blood Count 4.47 10^6/uL (3.85-5.65); Red Cell Distribution Width 13.8 % (12.1-15.1); White Blood Count 8.27 10^3/uL (3.29-11.43)
[2024-02-20 05:42] LABS: Alanine Aminotransferase 50 U/L (0-41); Albumin Level 3.3 g/dL (3.5-5.2); Alkaline Phosphatase 51 U/L (40-130); Anion Gap 12.8 (5-19); Aspartate Amino Transferase 57 U/L (0-40); Blood Urea Nitrogen 21 mg/dL (8-23); Calcium 8.5 mg/dL (8.5-10.5); Carbon Dioxide 33 mmol/L (22-29); Chloride 107 mmol/L (98-107); Creatinine Clr Calc Pharmacy 62.0056; Globulin 2.5 g/dL (1.3-4.6); Glucose 101 mg/dL (65-115); Osmolality Calculated 311 mOsm/kg (285-295); Potassium 3.8 mmol/L (3.5-5.1); Sodium 149 mmol/L (136-145); Total Bilirubin 0.3 mg/dL (0.15-1.2); Total Protein 5.8 g/dL (6.6-8.7)
[2024-02-20] MEDS: doxazosin 1 mg Tablet 2 MG PO (09:04)
[2024-02-20] MEDS: predniSONE 10 mg Tablet PO (09:04)
[2024-02-20] MEDS: cefTRIAXone 1,000 MG in sodium chloride 0.9% (plus) 50 ML 100 MG IV (09:04)
[2024-02-20] MEDS: albuterol 2.5 mg/3 mL Neb INHALATION ×3 (09:51→19:50)
--- NOTE | 2024-02-20 17:48 | P.PN_ITS ---
Subjective 2 Subjective: He still continues to need to adjust the head of the bed overnight due to difficulty finding good position to try to sleep due to orthopnea, dyspnea, scoliosis, neuropathy. Developed a blister on right big toe. Keeping his feet down currently, discussed and reinforced with him and his daughter keeping his feet up. He has been having difficulty doing so due to orthopnea. Will be trying. I am requesting for a footstool if possible to elevate at least some distance from the ground. Vitals/I&O/Wt Last Vital Signs Temp 97.9 F 02/20/24 16:29 Pulse 82 02/20/24 16:29 Resp 18 02/20/24 16:29 BP 127/78 02/20/24 16:29 Pulse Ox 94 02/20/24 16:29 O2 Del Method Nasal Cannula 02/20/24 16:29 O2 Flow Rate 2 02/20/24 13:50 FiO2 3 02/20/24 09:51 02/20/24 02/20/24 02/20/24 06:59 14:59 22:59 Intake Total 400 / 2160 890 / 890 250 / 1140 Output Total 125 / 1125 Balance 275 / 1035 890 / 890 250 / 1140 Weight last 48 hrs Weight 54.114 kg Physical Exam 2 Narrative: Accompanied by his daughter Const: COMMON NORMALS: patient oriented x3 and alert GENERAL APPEARANCE: c ooperative NUTRITIONAL APPEARANCE: underweight ORIENTATION/CONSCIOUSNESS: Yes awake HENMT: COMMON NORMALS: oropharynx normal Neck/C-Spine: COMMON NORMALS: no JVD Resp: COMMON NORMALS: normal respiratory effort and clear to auscultation bilaterally AUSCULTATION: clear to auscultation bilaterally and diminished lung sounds Cardio: COMMON NORMALS: no JVD, regular rhythm, S1 normal heart sound present, S2 normal heart sound present and No murmurs present (Cardio) RHYTHM: regular rhythm HEART SOUNDS: S1 normal heart sound present and S2 normal heart sound present GI: COMMON NORMALS: Normal to inspection, nondistended, normoactive bowel sounds present, Soft to palpation and non-tender PALPATION: Yes Soft to palpation Extremity: COMMON NORMALS: no joint enlargement GENERAL: Yes edema (3+) Neuro: COMMON NORMALS: patient oriented x3 and moves all extremities S ENSORIUM/ORIENTATION: Yes alert Skin: OTHER: Edema bilateral lower extremities, stasis dermatitis bilaterally, worse on the left. Subsiding erythema, no weeping at the dorsal foot, some weeping from wounds/ulcers. Prior toe amputations. Blister on medial right toe. Urinary Catheter Management: [place]: Cath Placed During This Visit: yes Reason for Continuing Indwelling Catheter: Other Urinary Catheter Date of Insertion: 02/16/24 Urinary Catheter Time of Insertion: 12:32 Data 02/20/24 05:08 02/20/24 05:08 Micro: Microbiology 02/15/24 15:37 Blood Culture - Final Blood NO GROWTH AFTER 5 DAYS 02/15/24 15:35 Blood Culture - Final Blood NO GROWTH AFTER 5 DAYS A&P Assessment and plan (1) Cellulitis: Encouraged him again to elevate his lower extremities as with buildup of edema due to gravity cellulitis venous ulcers will have difficult time healing. He does have a difficult time doing so as that requires him to be more reclined in bed.States that he will try. I am requesting a footstool as well. Continue empiric coverage with ceftriaxone and vancomycin at current time. Transition to oral therapy at discharge. Follow-up with wound care. Home health arrangements are being made by case management. Reviewed vitals, CBC, CMP. Leukocytosis resolved. He is afebrile. Noted mild transaminitis improving. Follow-up chemistry. Continue antibiotics for cellulitis, elevate lower extremity, compression dressing has been applied by podiatry. This should hopefully help with reducing swelling. Orthoses are recommended until his wounds are healing as he likely may not heal well if he tries to wear his brace is too early. Reviewed blood culture, final culture without growth. Venous duplex, noted no DVT. Reviewed foot x-ray, postsurgical and degenerative changes. Forefoot soft tissue swelling. No acute bony pathology. (2) Advanced COPD: He has come off hospice and will want to continue more aggressive care to try to get a better chance at healing his cellulitis, venous ulcer and regain ability to walk. His equipment has been picked up from home including his oxygen, wheelchair, shower chair, and other equipment now that he will be transitioning from hospice to home health. This equipment will need to be reordered. Additionally discussed with him orthoses documented by podiatry, however, no case management available on the weekend. He will need home O2 evaluation prior to discharge, as well as orthoses, although will need a wheelchair as likely may not be able to ambulate without his custom braces. He will be returning home with his will be staying with him to continue care. At discharge needs oxygen, will request home O2 evaluation, narrow wheelchair (90 manage with), bedside commode, shower chair. He needs a hospital bed due to severe orthopnea, advanced COPD, difficulty finding good positioning for sleep with oxygen requirement, orthopnea, scoliosis, neuropathy. Additionally at discharge also needs podiatry recommended in AFOs as he is not able to use his custom made braces. Renew oral morphine with Ativan COPD with air hunger, anxiety. Will need home O2 and oxygen for home use at discharge as oxygen has been taken back by hospice company. Advanced COPD, on chronic prednisone, oxygen, has nebulizer at home. On hospice care prior to hospitalization. Continue breathing treatments, prednisone. (3) Complicated UTI (urinary tract infection): Complicated by hematuria on presentation. Hematuria resolved. Reviewed urine culture -mixed normal urogenital collette. Discussed with him removal of [place] catheter, but he states he gets quite dyspneic having to try to stand up to urinate in the urinal, and is also unable to do that currently without his braces. Cannot use the urinal sitting down. Possibly passed a small stone. IV antibiotic treatment with ceftriaxone, empirically also vancomycin due to cellulitis. doxazosin. With hematuria, risk of urinary obstruction held aspirin. Per discussion with him aspirin as prophylactic. Denies history of [place], CVA. On chronic prednisone, monitor blood pressures, consider stress dose steroids in case of further hypotension. (4) CHF exacerbation: Appears mostly euvolemic at this time. Does have lower extremity edema, venous stasis. Compression dressings. Encouraged to elevate lower extremities. No additional Lasix given. Reassess volume status. Echocardiogram w normal ejection fraction, relative hypokinesia of apical septal segment. Thickened mitral valve. No pericardial effusion. Technically somewhat limited study. Responded well to dose of IV Lasix. He only weighs 54 kg and gets dehydrated quite easily, will hold off additional Lasix for now. Reassess volume status. Reassess electrolytes and kidney function. Plan Smoking addiction: Encourage cessation. Nicotine replacement as needed. Fungating growth on the superior right ear. He states that he previously followed up with ENT and was offered excision, states it was found to be a basal cell carcinoma. He is declining to pursue further assessment and treatment. Attestations 2 Medical Necessity Statement*: Continue hospitalization for assessment of management of cellulitis gentleman with Mxzdpci-Rjuwb-Lwbre disease, foot drop, inability to ambulate with lower extremity swelling, cellulitis, acute discussion and post discharge planning and arrangements now that he has discontinued hospice. Diagnoses Cellulitis L03.90 Advanced COPD J44.9 Complicated UTI (urinary tract infection) N39.0 CHF exacerbation I50.9
[2024-02-21] VITALS (10 sets, daily range): BP systolic 128–155; BP diastolic 62–76; PULSE 71–86; RESP 16–20; TEMP 36.7–37; O2SAT 87–97
[2024-02-21 02:42] LABS: Basophils % 0.2 %; Eosinophils # 0.1 10^3/uL (0.0-0.8); Eosinophils % 0.7 %; Hematocrit 41.5 % (37-53); Lymphocytes # 1.3 10^3/uL (0.8-4.8); Lymphocytes % 14.4 %; Mean Corpuscular HGB Conc 32.8 g/dL (30-55); Mean Corpuscular Hemoglobin 30.8 pg (27-33); Mean Corpuscular Volume 93.9 fl (82-101); Mean Platelet Volume 9.5 fL (7.4-10.4); Monocytes # 0.6 10^3/uL (0.2-0.9); Monocytes % 7.3 %; Neutrophils # 6.72 10^3/uL (1.8-7.7); Neutrophils % 77.2 %; Nucleated Red Blood Cells % 0 %; Platelet Count 184 10^3/cmm (157-399); Red Blood Count 4.42 10^6/uL (3.85-5.65); Red Cell Distribution Width 13.6 % (12.1-15.1); White Blood Count 8.71 10^3/uL (3.29-11.43)
[2024-02-21] MEDS: vancomycin 1,000 MG in sodium chloride 0.9% 250 ML 250 MG IV (02:52)
[2024-02-21 02:53] LABS: Alanine Aminotransferase 50 U/L (0-41); Albumin Level 3.4 g/dL (3.5-5.2); Alkaline Phosphatase 49 U/L (40-130); Anion Gap 11.8 (5-19); Aspartate Amino Transferase 51 U/L (0-40); Blood Urea Nitrogen 20 mg/dL (8-23); Calcium 9.2 mg/dL (8.5-10.5); Carbon Dioxide 31 mmol/L (22-29); Chloride 103 mmol/L (98-107); Creatinine Clr Calc Pharmacy 62.0056; Globulin 2.3 g/dL (1.3-4.6); Glucose 98 mg/dL (65-115); Osmolality Calculated 297 mOsm/kg (285-295); Potassium 3.8 mmol/L (3.5-5.1); Sodium 142 mmol/L (136-145); Total Bilirubin 0.3 mg/dL (0.15-1.2); Total Protein 5.7 g/dL (6.6-8.7)
[2024-02-21] MEDS: cefTRIAXone 1,000 MG in sodium chloride 0.9% (plus) 50 ML 100 MG IV (09:52)
[2024-02-21] MEDS: doxazosin 1 mg Tablet 2 MG PO (09:53)
[2024-02-21] MEDS: predniSONE 10 mg Tablet PO (09:53)
[2024-02-21] MEDS: vancomycin 1,000 MG in sodium chloride 0.9% 250 ML 2500 MG IV (15:13)
[2024-02-21 15:40] LABS: D Dimer 0.94 ug/mLFEU (0-0.59)
[2024-02-21 16:00] LABS: Thyroid Stimulating Hormone 1.04 uIU/mL (0.27-4.20); Vitamin B12 779 pg/mL (232-1245)
[2024-02-21 16:18] LABS: Iron 56 ug/dL (59-158); Percent Saturation 39.1 % (20-50); Total Iron Binding Capacity 143 mcg/dl; Unsaturated Iron Binding 87 ug/dL (112-347)
--- NOTE | 2024-02-21 16:25 | P.PN_ITS ---
Subjective 2 Subjective: Hospital course, labs appreciated. On examination patient sitting up in edge of the bed with legs hanging over the edge of the bed on 4 L of oxygen supplementation. Patient seemed disgruntled. He is frustrated that he has to go home soon. Denies any nausea, vomiting, headache. States he is not able to ambulate and feels very weak. Vitals/I&O/Wt Last Vital Signs Temp 98.6 F 02/21/24 15:47 Pulse 83 02/21/24 15:47 Resp 18 02/21/24 15:47 BP 136/67 02/21/24 15:47 Pulse Ox 91 02/21/24 15:47 O2 Del Method Nasal Cannula 02/21/24 15:47 O2 Flow Rate 2 02/21/24 13:41 FiO2 3 02/20/24 09:51 02/21/24 02/21/24 02/21/24 06:59 14:59 22:59 Intake Total 570 / 2250 170 / 170 Output Total 200 / 1000 650 / 650 Balance 370 / 1250 170 / 170 -650 / -480 Physical Exam 2 Narrative: Accompanied by his daughter Const: COMMON NORMALS: patient oriented x3 and alert GENERAL APPEARANCE: c ooperative NUTRITIONAL APPEARANCE: underweight ORIENTATION/CONSCIOUSNESS: Yes awake HENMT: COMMON NORMALS: oropharynx normal Neck/C-Spine: COMMON NORMALS: no JVD Resp: COMMON NORMALS: normal respiratory effort and clear to auscultation bilaterally AUSCULTATION: clear to auscultation bilaterally and diminished lung sounds Cardio: COMMON NORMALS: no JVD, regular rhythm, S1 normal heart sound present, S2 normal heart sound present and No murmurs present (Cardio) RHYTHM: regular rhythm HEART SOUNDS: S1 normal heart sound present and S2 normal heart sound present GI: COMMON NORMALS: Normal to inspection, nondistended, normoactive bowel sounds present, Soft to palpation and non-tender PALPATION: Yes Soft to palpation Extremity: COMMON NORMALS: no joint enlargement GENERAL: Yes edema (3+) Neuro: COMMON NORMALS: patient oriented x3 and moves all extremities S ENSORIUM/ORIENTATION: Yes alert Skin: OTHER: Edema bilateral lower extremities, stasis dermatitis bilaterally, worse on the left. Subsiding erythema, no weeping at the dorsal foot, some weeping from wounds/ulcers. Prior toe amputations. Blister on medial right toe. Urinary Catheter Management: [place]: Cath Placed During This Visit: yes Reason for Continuing Indwelling Catheter: Other Urinary Catheter Date of Insertion: 02/16/24 Urinary Catheter Time of Insertion: 12:32 Data 02/21/24 02:28 02/21/24 02:28 Micro: Microbiology 02/15/24 15:37 Blood Culture - Final Blood NO GROWTH AFTER 5 DAYS 02/15/24 15:35 Blood Culture - Final Blood NO GROWTH AFTER 5 DAYS A&P Assessment and plan (1) Cellulitis: Appreciate lower limb Dopplers to rule out DVT. Patient declined CANDIDO studies. Patient does not want to follow-up with wound care. Continue with IV ceftriaxone and vancomycin. Check MRSA swab. Appreciate podiatry recommendations. Continue with compression stockings. Encouraged him again to elevate his lower extremities as with buildup of edema due to gravity cellulitis venous ulcers will have difficult time healing. He does have a difficult time doing so as that requires him to be more reclined in bed. States that he will try. I am requesting a footstool as well. (2) Advanced COPD: Concerns for COPD and restrictive lung disease because of advanced scoliosis and muscle dystrophy. Was recently on hospice for overall 6 months. Declined hospice now. At baseline on 4 to 5 L of oxygen supplementation. Advanced COPD. Oxygen supplementation keeping saturation around 90%. Pulmicort twice daily, DuoNeb every 6 hours. Continue with oral prednisone 10 mg daily. Seems to be patient's home dose. No concerns for pneumonia as patient does not have leukocytosis, worsening cough or expectoration. Check D-dimer. If D-dimer positive will plan for CTA. Check procalcitonin. At discharge needs oxygen, will request home O2 evaluation, narrow wheelchair (90 manage with), bedside commode, shower chair. He needs a hospital bed due to severe orthopnea, advanced COPD, difficulty finding good positioning for sleep with oxygen requirement, orthopnea, scoliosis, neuropathy. Additionally at discharge also needs podiatry recommended in AFOs as he is not able to use his custom made braces. (3) Complicated UTI (urinary tract infection): Complicated by hematuria on presentation. Hematuria resolved. Reviewed urine culture -mixed normal urogenital collette. Discussed with him removal of [place] catheter, but he states he gets quite dyspneic having to try to stand up to urinate in the urinal, and is also unable to do that currently without his braces. Cannot use the urinal sitting down. Possibly passed a small renal stone. IV antibiotic treatment with ceftriaxone, empirically also vancomycin due to cellulitis. Continue with home dose of doxazosin. (4) CHF exacerbation: Plan Smoking addiction: Encourage cessation. Nicotine replacement as needed. Fungating growth on the superior right ear. He states that he previously followed up with ENT and was offered excision, states it was found to be a basal cell carcinoma. He is declining to pursue further assessment and treatment. CODE STATUS: Discussed in detail with the patient. Daughter and son will be the DPOA. Currently rheumatid resuscitation. He is okay with medications and defibrillation. Does not want chest compressions or ventilator. Cardiac diet Lovenox for DVT prophylaxis Discharge plan: Plan to discharge home within next 24 to 48 hours. Patient was on hospice on presentation but has declined hospice level. Patient lives by himself but daughter will be moving in for a short while. Home health would be appropriate. Patient will need home O2 evaluation on discharge. Attestations 2 Medical Necessity Statement*: Requires further hospitalization for management of hypoxia in setting of advanced COPD, obstructive lung disease, extensive cellulitis of lower limb while safe discharge planning is sought Diagnoses Cellulitis L03.90 Advanced COPD J44.9 Complicated UTI (urinary tract infection) N39.0 CHF exacerbation I50.9
[2024-02-22] VITALS (10 sets, daily range): BP systolic 118–141; BP diastolic 65–73; PULSE 76–95; RESP 17–20; TEMP 36.2–36.8; O2SAT 91–98
[2024-02-22] MEDS: vancomycin 1,000 MG in sodium chloride 0.9% 250 ML 250 MG IV ×2 (01:39→14:19)
--- NOTE | 2024-02-22 04:46 | PC.NURSE ---
DRSG CHANGE 02/21/24 NOC pt agreed to change dressings d/t saturation from leg wounds. towards the end of change, pt stated he did not want the TREVA wraps on his legs, that it made them hurt and they were too heavy. conveyed that it was ordered per podiatry. pt refused and nurse wrapped legs in kerlex per orders, without addition of TREVA wraps.
[2024-02-22] MEDS: LORazepam 1 mg Tablet PO (05:17)
[2024-02-22 05:57] LABS: Basophils % 0.2 %; Eosinophils # 0.1 10^3/uL (0.0-0.8); Eosinophils % 0.9 %; Hematocrit 45.7 % (37-53); Lymphocytes # 1.3 10^3/uL (0.8-4.8); Lymphocytes % 14.5 %; Mean Corpuscular HGB Conc 31.9 g/dL (30-55); Mean Corpuscular Hemoglobin 30.1 pg (27-33); Mean Corpuscular Volume 94.2 fl (82-101); Mean Platelet Volume 9.8 fL (7.4-10.4); Monocytes # 0.6 10^3/uL (0.2-0.9); Monocytes % 7.3 %; Neutrophils # 6.77 10^3/uL (1.8-7.7); Neutrophils % 76.8 %; Nucleated Red Blood Cells % 0 %; Platelet Count 201 10^3/cmm (157-399); Red Blood Count 4.85 10^6/uL (3.85-5.65); Red Cell Distribution Width 13.6 % (12.1-15.1); White Blood Count 8.82 10^3/uL (3.29-11.43)
[2024-02-22] MEDS: morphine 10 mg/0.5 mL oral liq UD PO (06:02)
[2024-02-22 06:13] LABS: Alanine Aminotransferase 56 U/L (0-41); Albumin Level 3.5 g/dL (3.5-5.2); Alkaline Phosphatase 53 U/L (40-130); Aspartate Amino Transferase 50 U/L (0-40); Blood Urea Nitrogen 19 mg/dL (8-23); Carbon Dioxide 33 mmol/L (22-29); Chloride 100 mmol/L (98-107); Creatinine Clr Calc Pharmacy 62.0056; Globulin 2.6 g/dL (1.3-4.6); Glucose 112 mg/dL (65-115); Osmolality Calculated 293 mOsm/kg (285-295); Sodium 140 mmol/L (136-145); Total Bilirubin 0.4 mg/dL (0.15-1.2); Total Protein 6.1 g/dL (6.6-8.7)
[2024-02-22 06:14] LABS: Chol HDL Ratio 2.27 mg/dL (1.0-5.00); Cholesterol 159 mg/dL (0-200); HDL Cholesterol 70 mg/dL (60-100); LDL Cholesterol Calculated 78 mg/dL (50-129); Triglycerides 53 mg/dL (0-150); VLDL Cholestrol Calculation 11 mg/dL (0-30)
[2024-02-22 06:29] LABS: Folate Level 13.1 ng/mL (4.5-32.2)
[2024-02-22 07:00] LABS: Estmated Average Glucose 128; Hemoglobin A1C 6.1 % (4.0-6.0)
[2024-02-22] MEDS: ipratropium-albuterol 3 mL Neb INHALATION ×3 (08:46→19:57)
[2024-02-22] MEDS: predniSONE 10 mg Tablet PO (09:25)
[2024-02-22] MEDS: cefTRIAXone 1,000 MG in sodium chloride 0.9% (plus) 50 ML 100 MG IV (09:25)
[2024-02-22] MEDS: doxazosin 1 mg Tablet 2 MG PO (09:25)
--- NOTE | 2024-02-22 16:26 | P.PN_ITS ---
Subjective 2 Subjective: No acute events overnight. Patient again seen today sitting at the edge of the bed. Noncompliant with keeping the legs elevated. Fadi wraps removed last night as patient was uncomfortable. He is declining to be wrapped with Fadi wrap's again. Currently wrapped with Kerlix. On 2 L of oxygen supplementation. Vitals/I&O/Wt Last Vital Signs Temp 98.0 F 02/22/24 15:55 Pulse 84 02/22/24 15:55 Resp 17 02/22/24 15:55 BP 118/72 02/22/24 15:55 Pulse Ox 97 02/22/24 15:55 O2 Del Method Nasal Cannula 02/22/24 15:55 O2 Flow Rate 2 02/22/24 13:26 FiO2 3 02/20/24 09:51 02/22/24 02/22/24 02/22/24 06:59 14:59 22:59 Intake Total 450 / 1170 410 / 410 Output Total 400 / 1450 Balance 50 / -280 410 / 410 Physical Exam 2 Narrative: Accompanied by his daughter Const: COMMON NORMALS: patient oriented x3 and alert GENERAL APPEARANCE: c ooperative NUTRITIONAL APPEARANCE: underweight ORIENTATION/CONSCIOUSNESS: Yes awake HENMT: COMMON NORMALS: oropharynx normal Neck/C-Spine: COMMON NORMALS: no JVD Resp: COMMON NORMALS: normal respiratory effort and clear to auscultation bilaterally AUSCULTATION: clear to auscultation bilaterally and diminished lung sounds Cardio: COMMON NORMALS: no JVD, regular rhythm, S1 normal heart sound present, S2 normal heart sound present and No murmurs present (Cardio) RHYTHM: regular rhythm HEART SOUNDS: S1 normal heart sound present and S2 normal heart sound present GI: COMMON NORMALS: Normal to inspection, nondistended, normoactive bowel sounds present, Soft to palpation and non-tender PALPATION: Yes Soft to palpation Extremity: COMMON NORMALS: no joint enlargement GENERAL: Yes edema (3+) Neuro: COMMON NORMALS: patient oriented x3 and moves all extremities S ENSORIUM/ORIENTATION: Yes alert Skin: OTHER: Edema bilateral lower extremities, stasis dermatitis bilaterally, worse on the left. Subsiding erythema, no weeping at the dorsal foot, some weeping from wounds/ulcers. Prior toe amputations. Blister on medial right toe. Urinary Catheter Management: [place]: Cath Placed During This Visit: yes Reason for Continuing Indwelling Catheter: Other Urinary Catheter Date of Insertion: 02/16/24 Urinary Catheter Time of Insertion: 12:32 Data 02/22/24 05:40 02/22/24 05:40 Micro: Microbiology 02/22/24 01:37 Bacterial Antigens - Final Urine Kidney A&P Assessment and plan (1) Cellulitis: Appreciate lower limb Dopplers to rule out DVT. Patient declined CANDIDO studies. Patient does not want to follow-up with wound care. Continue with IV ceftriaxone and vancomycin. Check MRSA swab. Appreciate podiatry recommendations. Continue with compression stockings. Encouraged him again to elevate his lower extremities as with buildup of edema due to gravity cellulitis venous ulcers will have difficult time healing. He does have a difficult time doing so as that requires him to be more reclined in bed. States that he will try. I am requesting a footstool as well. (2) Advanced COPD: Concerns for COPD and restrictive lung disease because of advanced scoliosis and muscle dystrophy. Was recently on hospice for overall 6 months. Declined hospice now. At baseline on 4 to 5 L of oxygen supplementation. Advanced COPD. Oxygen supplementation keeping saturation around 90%. Pulmicort twice daily, DuoNeb every 6 hours. Continue with oral prednisone 10 mg daily. Seems to be patient's home dose. No concerns for pneumonia as patient does not have leukocytosis, worsening cough or expectoration. Check D-dimer. If D-dimer positive will plan for CTA. Check procalcitonin. At discharge needs oxygen, will request home O2 evaluation, narrow wheelchair (90 manage with), bedside commode, shower chair. He needs a hospital bed due to severe orthopnea, advanced COPD, difficulty finding good positioning for sleep with oxygen requirement, orthopnea, scoliosis, neuropathy. Additionally at discharge also needs podiatry recommended in AFOs as he is not able to use his custom made braces. (3) Complicated UTI (urinary tract infection): Complicated by hematuria on presentation. Hematuria resolved. Reviewed urine culture -mixed normal urogenital collette. Discussed with him removal of [place] catheter, but he states he gets quite dyspneic having to try to stand up to urinate in the urinal, and is also unable to do that currently without his braces. Cannot use the urinal sitting down. Possibly passed a small renal stone. IV antibiotic treatment with ceftriaxone, empirically also vancomycin due to cellulitis. Continue with home dose of doxazosin. (4) CHF exacerbation: Plan Smoking addiction: Encourage cessation. Nicotine replacement as needed. Fungating growth on the superior right ear. He states that he previously followed up with ENT and was offered excision, states it was found to be a basal cell carcinoma. He is declining to pursue further assessment and treatment. CODE STATUS: Discussed in detail with the patient. Daughter and son will be the DPOA. Currently rheumatid resuscitation. He is okay with medications and defibrillation. Does not want chest compressions or ventilator. Cardiac diet Lovenox for DVT prophylaxis Plan for the day: Continue with physical therapy. Continue to wean oxygen keeping saturation more than 90%. Out of bed to chair. No further medications as per hospice. Ativan 1 mg oral as needed for anxiety. Morphine 1 mg every 4 hours as needed. Will confirm with podiatry further about wound care. Follow-up continue with Fadi wrap as patient allows. CEDRIC [place]. Discharge plan: Patient would benefit from SNF placement given advanced COPD, poor ambulation secondary to bilateral lower limb wounds requiring extensive physical therapy. Patient requires further extensive wound care so that he can participate aggressively with physical therapy. Currently hindered because of leg wounds. Will discuss in detail with the patient about SNF versus home with home health. Otherwise plan to discharge home within next 24 to 48 hours. Patient was on hospice on presentation but has declined hospice level. Patient lives by himself but daughter will be moving in for a short while. Patient will need home O2 evaluation on discharge. Attestations 2 Medical Necessity Statement*: Requires further hospitalization for management of advanced COPD, extensive bilateral lower limb cellulitis while safe discharge planning is sought. Diagnoses Cellulitis L03.90 Advanced COPD J44.9 Complicated UTI (urinary tract infection) N39.0 CHF exacerbation I50.9
--- NOTE | 2024-02-22 19:12 | PC.NURSE ---
Dr. mahoney notified that patient refused to have catheter removed.
--- NOTE | 2024-02-22 20:35 | P.PN_ITS ---
Subjective 2 Subjective: Patient seen at bedside this afternoon with legs dangling off edge of the bed in the dependent position. He has been non compliant with keeping his compression dressings on to bilateral lower extremities. Nursing called and discussed case with me. Vitals/I&O/Wt Last Vital Signs Temp 98.3 F 02/22/24 20:00 Pulse 90 02/22/24 20:04 Resp 18 02/22/24 20:00 BP 120/67 02/22/24 20:00 Pulse Ox 95 02/22/24 20:00 O2 Del Method Nasal Cannula 02/22/24 20:00 O2 Flow Rate 2 02/22/24 19:57 FiO2 3 02/20/24 09:51 02/22/24 02/22/24 02/22/24 06:59 14:59 22:59 Intake Total 450 / 1170 410 / 410 370 / 780 Output Total 400 / 1450 600 / 600 Balance 50 / -280 410 / 410 -230 / 180 Physical Exam 2 Narrative: BELOW IS A FOCUSED LOWER EXTREMITY EXAM GENERAL: A&O x 3 VASCULAR: DP/PT pulses palpable 2/4 with CFT intact, <3seconds to distal digits. +2 edema to left lower extremity. DP/PT pulses are audibly biphasic on hand- held Doppler at bedside DERMATOLOGICAL: Multiple ulcerations to left lower extremity with the largest being on the posterior aspect of the leg extending from the mid calf down to the heel, this is superficial and down to the level of the dermis. Multiple full- thickness ulcerations to the dorsum of the left foot with 100% fibrotic base as well as full-thickness ulceration to medial aspect of left ankle at the level of the medial malleolus with 100% fibrotic base. Stasis dermatitis changes to left lower extremity with mild erythema. No proximal lymphangitic streaking. No active purulence. Posterior leg wound is weeping clear fluid secondary to venous stasis MUSCULOSKELETAL: Tenderness with palpation of lower extremity ulcerations. No pain with calf squeeze. [id number]-[id number] deformity with high cavus foot type and contracted metatarsophalangeal joints NEUROLOGICAL: Neurological sensation to the affected foot and ankle is present through L4-S1 dermatomes with no hyper/hypoesthesias, negative Tinel or Valleix's sign Urinary Catheter Management: [place]: Cath Placed During This Visit: yes Reason for Continuing Indwelling Catheter: Other Urinary Catheter Date of Insertion: 02/16/24 Urinary Catheter Time of Insertion: 12:32 Data 02/22/24 05:40 02/22/24 05:40 Micro: Microbiology 02/22/24 01:37 Bacterial Antigens - Final Urine Kidney A&P Assessment and plan (1) Cellulitis: (2) Venous stasis ulcer: (3) Peripheral vascular disease: Plan -Venous stasis ulcerations -Labs and vitals reviewed -WBC 8.8 -ESR 16 -CRP 8.5 VSS -Cultures blood cultures NGTD -Abx Vanco/Rocephin -Diet: Okay for diet from podiatry standpoint -Patient has severe venous insufficiency leading to venous stasis ulceration. Wounds are stable. Patient is non compliant with compression therapy. He remains seated at bed with legs in dependent position. Dressing changed this afternoon by me -No surgical intervention by podiatry during this admission. -Pain Mgmt: Per primary team -Weight bearing: Weightbearing as tolerated to bilateral lower extremities. Recommend elevation in bed if possible. Patient COPD may limit this -Dressings: Bilateral UNNA boot applied to bilateral lower extremities with nonadeherent silver alginate and overlying ABD pads, 4 inch raquel. This dressing is to remain on until discharge. -Continue current Abx therapy, local wound care with focus on compression therapy -Trend labs -Discharge plan: Patient is okay to discharge from podiatry standpoint once deemed medically stable. Recommend discharging on oral antibiotics, broad- spectrum for left lower leg cellulitis. Patientis being discharged home with home health. Home health will need to perform UNNA boot application with non adherent silver alginate 3 times weekly. Patient will not be able to use his custom bracing until his wounds have healed as these will impede wound healing and rub on the areas of concern causing pain for the patient. Recommend bilateral PRAFO boot to offload areas of ulceration and provide patient some stability. Appreciate case management help with this. Upon discharge from the hospital recommend follow-up at the wound care center. Attestations 2 Medical Necessity Statement*: See hospitalist note Coding Level of Care Code Acute Code for [facility] Diagnoses Cellulitis L03.90 Venous stasis ulcer I83.009; L97.909 Peripheral vascular disease I73.9
[2024-02-23] VITALS (10 sets, daily range): BP systolic 124–148; BP diastolic 62–80; PULSE 77–109; RESP 16–24; TEMP 36.6–37.2; O2SAT 86–96
[2024-02-23] MEDS: vancomycin 1,000 MG in sodium chloride 0.9% 250 ML 250 MG IV (01:47)
[2024-02-23] MEDS: acetaminophen 325 mg Tablet 650 MG PO (03:07)
[2024-02-23 06:28] LABS: Magnesium 2.3 mg/dL (1.7-2.3)
[2024-02-23] MEDS: cefTRIAXone 1,000 MG in sodium chloride 0.9% (plus) 50 ML 100 MG IV (08:51)
[2024-02-23] MEDS: doxazosin 1 mg Tablet 2 MG PO (08:51)
[2024-02-23] MEDS: predniSONE 10 mg Tablet PO (08:51)
--- NOTE | 2024-02-23 12:13 | PM.DCS ---
Discharge Providers Date of Admission: 02/15/24 19:30 Date of Discharge: February 23, 2024 Attending Provider at Admission: Sukhi Weston Attending Provider at Discharge: Nithin Ramsay MD Consults: Podiatry: Dr. Parker Primary Care Provider: Lana Mueller MD Diagnoses at Discharge Discharge Diagnosis (1) Cellulitis: Status: Acute (2) Venous stasis ulcer: Status: Acute (3) Peripheral vascular disease: Status: Acute Reason for Visit Reason for Visit: Back pain Brief History: History as per HPI: Pleasant 73-year-old woman with history of advanced COPD currently on 2 L of oxygen, on hospice, [facility], CHF, chronic LLE wounds, smokinig, came into ER for evaluation due to urinary symptoms with urgency, frequency, hematuria, right flank pain, states yesterday urinated zayra blood, as well as worsening erythema, swelling around the ulcers of left lower extremity. In ER he is afebrile, with leukocytosis 12.69, with urine with numerous RBCs, too numerous to count, WBC of 40-55, 1+ bacteria, positive nitrate, cloudy, CT abdomen pelvis limited due to patient positioning, but with very mild elevation of the right renal pelvis, no stone identified, no perinephric stranding. Not all sections of ureter visualized, but no stone. Bilateral nonobstructing renal calculi. Severe emphysema, diffuse constipation. Mild protrusion of the colon into right inguinal canal. No obstruction or incarceration. Prominent omental fat in the left inguinal canal. Patient reported he would like to come off hospice to address current issues and would like to be hospitalized and treated. Hospital Course Hospital Course Patient was admitted to the hospital for further evaluation and management of sepsis in setting of cellulitis and complicated UTI. He was started on broad-spectrum antibiotics. Given his extensive cellulitis with chronic wounds in his leg podiatry was consulted and dressings were changed accordingly. Lower limb Dopplers ruled out DVT. ABIs were were ordered but patient refused the study. On admission patient was under hospice service for advanced COPD. During hospitalization patient declined hospice stating that he was not aware hospice would need to do active treatment and change his CODE STATUS to limited resuscitation. He showed gradual improvement with his breathing with antibiotics being back to baseline for last 2 to 3 days. During hospitalization patient had physical therapy evaluation which was restricted because of patient's need for baseline braces for ambulation which she was not able to get because of his extensive lower limb wounds. Safe discharge plan were discussed in detail with the patient for requirements of extensive wound care and physical therapy after healing of lower limb wounds with wound care. Patient declined placement to SNF but was agreeable to go home with home health. Due to advanced COPD patient at baseline is at a higher risk of recurrent admissions, failure to thrive. If patient continues to have multiple admissions, further decline in his health palliative care would be understandable. Goals of care discussions were done multiple times during hospitalization. He has been discharged home with home health on oral Augmentin and Levaquin for next 7 days, aggressive wound care. He has been advised to keep his legs elevated. Physical Exam Narrative: Accompanied by his son Const: COMMON NORMALS: patient oriented x3 and alert GENERAL APPEARANCE: cooperative NUTRITIONAL APPEARANCE: underweight ORIENTATION/CONSCIOUSNESS: Yes awake HENMT: COMMON NORMALS: oropharynx normal Neck/C-Spine: COMMON NORMALS: no JVD Resp: COMMON NORMALS: normal respiratory effort and clear to auscultation bilaterally AUSCULTATION: clear to auscultation bilaterally and diminished lung sounds Cardio: COMMON NORMALS: no JVD, regular rhythm, S1 normal heart sound present, S2 normal heart sound present and No murmurs present (Cardio) RHYTHM: regular rhythm HEART SOUNDS: S1 normal heart sound present and S2 normal heart sound present GI: COMMON NORMALS: Normal to inspection, nondistended, normoactive bowel sounds present, Soft to palpation and non-tender PALPATION: Yes Soft to palpation Extremity: COMMON NORMALS: no joint enlargement GENERAL: Yes edema (3+) Neuro: COMMON NORMALS: patient oriented x3 and moves all extremities SENSORIUM/ORIENTATION: Yes alert Skin: OTHER: Edema bilateral lower extremities, stasis dermatitis bilaterally, worse on the left. Subsiding erythema, no weeping at the dorsal foot, some weeping from wounds/ulcers. Prior toe amputations. Blister on medial right toe. Urinary Catheter Management: [place]: Cath Placed During This Visit: yes Reason for Continuing Indwelling Catheter: Other Urinary Catheter Date of Insertion: 02/16/24 Urinary Catheter Time of Insertion: 12:32 Discharge Data Studies Completed and Pending Completed Studies During Hospitalization Category Date Time Status CT abdomen renal stone [CT kidney stone [id number]] Stat Cat Scan 02/15/24 13:[address] ankle LT w con [id number] Routine Cat Scan 02/18/24 11:[address] foot RT w con [id number] Routine Cat Scan 02/18/24 11:57 Completed XR chest 1V portable [id number] Urgent Exams 02/15/24 12:54 Completed XR foot LT min 3V* [id number] Routine Exams 02/15/24 17:51 Completed CV. echo complete* [id number] Routine Ultrasound 02/15/24 17:51 Completed US venous duplex lower extremity bilat [CV venous Ultrasound 02/15/24 17:51 [place] [id number]] Routine Pending at discharge Category Date Time Status MAG [Magnesium] AM LABS Lab 02/24/24 04:00 Ordered MRSA [Methicillin Resistant S.aureu] Routine Lab 02/21/24 14:40 Received Radiology Impressions Chest X-Ray 02/15/24 12:54 IMPRESSION: No acute cardiopulmonary pathology . Possible new midthoracic vertebral body compression deformity. Spine radiographs and/or CT recommended for further assessment if clinically warranted. Foot X-Ray 02/15/24 17:51 IMPRESSION: Postsurgical and degenerative changes with forefoot soft tissue swelling as described. No acute bony pathology. Ankle CT 02/18/24 11:57 IMPRESSION: 1. Diffuse superficial soft tissue edema and skin thickening compatible with cellulitis. No evidence of discrete fluid collection or acute osseous erosion. Foot CT 02/18/24 11:57 IMPRESSION: 1. Diffuse soft tissue edema without evidence of acute osseous erosion, fracture or subluxation. 2. Chronic deformity of the distal phalanx tuft great toe as well as the distal 5th metatarsal, possibly sequela of remote trauma or infection. Microbiology 02/22/24 01:37 Urine Kidney Bacterial Antigens - Final 02/15/24 15:37 Blood Blood Culture - Final NO GROWTH AFTER 5 DAYS 02/15/24 15:35 Blood Blood Culture - Final NO GROWTH AFTER 5 DAYS 02/15/24 13:03 Urine,Clean Catch Urine Culture - Final Laboratory Results WBC 8.82 10^3/uL (3.29-11.43) 02/22/24 05:40 RBC 4.85 10^6/uL (3.85-5.65) 02/22/24 05:40 Hgb 14.60 g/dL (11.27-16.99) 02/22/24 05:40 Hct 45.7 % (37-53) 02/22/24 05:40 MCV 94.2 fl (82-101) 02/22/24 05:40 MCH 30.1 pg (27-33) 02/22/24 05:40 MCHC 31.9 g/dL (30-55) 02/22/24 05:40 RDW 13.6 % (12.1-15.1) 02/22/24 05:40 Plt Count 201 10^3/cmm (157-399) 02/22/24 05:40 MPV 9.8 fL (7.4-10.4) 02/22/24 05:40 Neut % (Auto) 76.8 % 02/22/24 05:40 Lymph % (Auto) 14.5 % 02/22/24 05:40 [place] % (Auto) 7.3 % 02/22/24 05:40 Eos % (Auto) 0.9 % 02/22/24 05:40 Baso % (Auto) 0.2 % 02/22/24 05:40 Neut # (Auto) 6.77 10^3/uL (1.8-7.7) 02/22/24 05:40 Lymph # (Auto) 1.3 10^3/uL (0.8-4.8) 02/22/24 05:40 [place] # (Auto) 0.6 10^3/uL (0.2-0.9) 02/22/24 05:40 Eos # (Auto) 0.1 10^3/uL (0.0-0.8) 02/22/24 05:40 Baso # (Auto) 0.0 10^3/uL (0.0-0.1) 02/22/24 05:40 Nucleated RBC % (auto) 0 % 02/22/24 05:40 Nucleated RBCs # 0.0 /100WBC 02/22/24 05:40 ESR 16 mm/hr (0-10) H 02/19/24 04:27 D-Dimer 0.94 ug/mLFEU (0-0.59) H 02/21/24 14:12 Sodium 140 mmol/L (136-145) 02/22/24 05:40 Potassium 4.0 mmol/L (3.5-5.1) 02/22/24 05:40 Chloride 100 mmol/L (98-107) 02/22/24 05:40 Carbon Dioxide 33 mmol/L (22-29) H 02/22/24 05:40 Anion Gap 11.0 (5-19) 02/22/24 05:40 BUN 19 mg/dL (8-23) 02/22/24 05:40 Creatinine 0.4 mg/dL (0.7-1.2) L 02/22/24 05:40 GFR Calculation Not Reportable 02/22/24 05:40 Glucose 112 mg/dL (65-115) 02/22/24 05:40 POC Glucose 135 mg/dL (70-110) H 02/16/24 06:34 Estimat Average Glucose 128 02/22/24 05:40 Hemoglobin A1c 6.1 % (4.0-6.0) H 02/22/24 05:40 Calculated Osmolality 293 mOsm/kg (285-295) 02/22/24 05:40 Lactic Acid 1.8 mmol/L (0.5-2.2) 02/15/24 12:36 Calcium 9.0 mg/dL (8.5-10.5) 02/22/24 05:40 Magnesium 2.3 mg/dL (1.7-2.3) 02/23/24 05:49 Iron 56 ug/dL (59-158) L 02/21/24 14:12 TIBC 143 mcg/dl 02/21/24 14:12 % Saturation 39.1 % (20-50) 02/21/24 14:12 Unsat Iron Binding 87 ug/dL (112-347) L 02/21/24 14:12 Total Bilirubin 0.4 mg/dL (0.15-1.2) 02/22/24 05:40 AST 50 U/L (0-40) H 02/22/24 05:40 ALT 56 U/L (0-41) H 02/22/24 05:40 Alkaline Phosphatase 53 U/L (40-130) 02/22/24 05:40 C-Reactive Protein 8.5 mg/L (0.0-4.9) H 02/15/24 12:36 Total Protein 6.1 g/dL (6.6-8.7) L 02/22/24 05:40 Albumin 3.5 g/dL (3.5-5.2) 02/22/24 05:40 Globulin 2.6 g/dL (1.3-4.6) 02/22/24 05:40 Triglycerides 53 mg/dL (0-150) 02/22/24 05:40 Cholesterol 159 mg/dL (0-200) 02/22/24 05:40 LDL Cholesterol, Calc 78 mg/dL (50-129) 02/22/24 05:40 Total VLDL Cholesterol 11 mg/dL (0-30) 02/22/24 05:40 HDL Cholesterol 70 mg/dL (60-100) 02/22/24 05:40 Cholesterol/HDL Ratio 2.27 mg/dL (1.0-5.00) 02/22/24 05:40 Vitamin B12 779 pg/mL (232-1245) 02/21/24 14:12 Folate 13.1 ng/mL (4.5-32.2) 02/22/24 05:40 Procalcitonin 0.10 ng/mL (0-0.5) 02/21/24 14:12 TSH 1.04 uIU/mL (0.27-4.20) 02/21/24 14:12 Urine Color Smiley (Yellow) 02/15/24 13:03 Urine Appearance Cloudy (CLEAR) A 02/15/24 13:03 Urine pH 5 (5-7) 02/15/24 13:03 Ur Specific [place] 1.020 (1.005-1.030) 02/15/24 13:03 Urine Protein 3+ (Negative) H 02/15/24 13:03 Urine Glucose (UA) Norm (Normal) 02/15/24 13:03 Urine Ketones 1+ (Negative) H 02/15/24 13:03 Urine Blood 3+ (Negative) H 02/15/24 13:03 Urine Nitrate Positive (Negative) H 02/15/24 13:03 Urine Bilirubin 1+ (Negative) H 02/15/24 13:03 Urine Urobilinogen 1 mg/dL (Negative) H 02/15/24 13:03 Ur Leukocyte Esterase 2+ (Negative) H 02/15/24 13:03 Urine RBC Too numerous to cnt /hpf (0-2) H 02/15/24 13:03 Urine WBC 40-55 /hpf (0-5) H 02/15/24 13:03 Ur Squamous Epith Cells 0-4 /hpf (0-5) H 02/15/24 13:03 Calcium Oxalate Crystal 0-4 /hpf H 02/15/24 13:03 Amorphous Sediment Not Reportable 02/15/24 13:03 Urine Bacteria 1+ /hpf (NONE) H 02/15/24 13:03 Urine Mucus Trace /hpf 02/15/24 13:03 Vancomycin Trough 17.0 ug/mL (10-15) H 02/21/24 02:28 Vitals Last Vital Signs Temp 98 F 02/23/24 11:19 Pulse 85 02/23/24 11:19 Resp 17 02/23/24 11:19 BP 148/68 02/23/24 11:19 Pulse Ox 96 02/23/24 11:19 O2 Del Method Nasal Cannula 02/23/24 11:19 O2 Flow Rate 2 02/23/24 07:54 FiO2 3 02/20/24 09:51 Discharge Plan Discharge Patient Disposition: Home Health Service Condition: Stable Prescriptions: New Augmentin 500-125 mg tablet 1 tab PO BID Qty: 10 0RF levofloxacin 500 mg tablet 500 mg PO DAILY 10 Days Qty: 10 0RF hydrocodone-acetaminophen 5-300 mg tablet 1 tab PO BID PRN (Reason: pain) Qty: 10 0RF Continued multivitamin [Daily Multi-Vitamin] Tablet 1 tab PO DAILY naproxen [EC-Naprosyn] 500 mg tablet,delayed release (DR/EC) 500 mg PO DAILY nitroglycerin 0.4 mg tablet, sublingual 0.4 mg sublingual Q5M PRN (Reason: chest pain) Qty: 25 2RF Rx Instructions: do not exceed 3 doses per episode albuterol sulfate [Proventil HFA] 90 mcg/actuation HFA aerosol inhaler 2 puff INHALATION Q4H PRN (Reason: shortness of breath or wheezing) 30 Days Qty: 8.5 7RF lorazepam 1 mg tablet 1 mg PO DAILY PRN (Reason: anxiety/smothering) Qty: 30 0RF albuterol sulfate 2.5 mg /3 mL (0.083 %) solution for nebulization 2.5 mg inhalation Q6H 30 Days Qty: 360 5RF potassium chloride 10 mEq capsule, extended release 10 meq PO DAILY prednisone 10 mg tablet 10 mg PO DAILY aspirin 81 mg Tablet,Delayed Release (Dr/Ec) 81 mg PO DAILY furosemide 20 mg tablet 20 mg PO DAILY doxazosin 2 mg tablet 2 mg PO DAILY Discontinued morphine concentrate 100 mg/5 mL (20 mg/mL) solution See Rx Instructions .ROUTE .COMPLEX Rx Instructions: 0.5 ML EVRY HOUR NEEDED Discharge Orders: Discharge Order (Routine); Ordered 02/23/24 Ordered By: Nithin Ramsay Other Ambulatory Orders: DME: Commode (Order) Location: None Selected Ordered By: Nithin Ramsay DME: Hospital Bed (Order) Location: None Selected Ordered By: Sukhi Weston DME: Miscellaneous (Order) Location: None Selected Ordered By: Nithin Ramsay DME: Oxygen (Order) Location: None Selected Ordered By: Nithin Ramsay DME: Shower Chair (Order) Location: None Selected Ordered By: Sukhi eWston DME: Wheelchair (Order) Location: None Selected Ordered By: Sukhi Weston Referrals: [facility] [Other] Pulmonary [Provider Group] - 2 weeks Wound Care [Provider Group] - 02/28/24 2:00 pm ([phone]) [facility] [Outside] Lana Mueller MD [Primary Care Provider] - 02/24/24 9:00 am Discharge Diet: Cardiac Discharge Activity: Resume usual activity and Increase activity as tolerated Patient Instructions: COPD, Hydrocodone/Acetaminophen (By mouth), Amoxicillin/Clavulanate Potassium (By mouth), Levofloxacin (By mouth), Heart Failure (GEN), CHF Stoplight, COPD Stoplight, Opioid Safety Activity Restrictions/Additional Instructions: Dressings: Daily dressing change consisting of nonadherent silver alginate dressing to bilateral wounds followed by ABD pads, Kerlix and Fadi wrap compression up to the level of the knee. Please keep your legs elevated. Please continue with aggressive wound care. This follow-up with a primary care provider on set appointment. Discharge Attestations Time Spent in Discharge Care*: greater than 30 min Specific Discharge Activities: educating patient, educating and/or supporting family/caregiver, discussing with pcp/other providers, discussing with pillowcase turner/social workers/dc planners, documenting/other paperwork and evaluating patient/reviewing data Status at Discharge: Cognitive status at discharge: cognitively intact, Behavioral status at discharge: can be uncooperative, Functional status at discharge: other assisted ambulation, Overall status at discharge: patient is progressing back to baseline Quality Metrics Clinical Quality Measures [ No reported AMI, CVA or VTE this stay] Coding Level of Care Code 36029 Total time (in minutes) for Discharge: 65 Diagnoses Cellulitis L03.90 Venous stasis ulcer I83.009; L97.909 Peripheral vascular disease I73.9
[2024-02-23 13:39] LABS: Methicillin-Resist S.aureu PCR NOT DETECTED (NOT DETECTED)
== END 2024-02-23 21:10 | disposition home health service (06) ==
LOC: ER 15:51 → MEDSURG 17:22
PROVIDERS: Internal Medicine; Podiatrist Foot & Ankle Surgery; Admitting Provider Internal Medicine; Emergency Provider Physician Assistant; PCP Family Medicine; Visit Provider Student in an Organized Health Care Education/Training Program
DX: L03.90 Cellulitis, unspecified (principal); I87.8 Other specified disorders of veins; L97.909 Non-pressure chronic ulcer of unspecified part of unspecified lower leg with unspecified severity; I73.9 Peripheral vascular disease, unspecified; J44.9 Chronic obstructive pulmonary disease, unspecified; Z99.81 Dependence on supplemental oxygen; G60.0 Hereditary motor and sensory neuropathy; I50.9 Heart failure, unspecified; F17.200 Nicotine dependence, unspecified, uncomplicated; N39.0 Urinary tract infection, site not specified; Z91.199 Patient's noncompliance with other medical treatment and regimen due to unspecified reason; C44.212 Basal cell carcinoma of skin of right ear and external auricular canal; F41.9 Anxiety disorder, unspecified; Z79.52 Long term (current) use of systemic steroids
CPT/HCPCS: 36415; 36416; 51702; 71045; 73630; 73701; 74176; 80048; 80053; 80061; 80202; 81001; 82607; 82746; 82962; 83036; 83540; 83550; 83605; 83735; 84145; 84443; 85025; 85378; 85651; 86140; 86403; 87040; 87086; 87641; 93306; 93970; 94640; 94664; 94760; 96365; 96366; 96367; 96372; 96375; 96376; 99285; G0378; J0696; J1650; J1940; J2060; J3370; J7030; J7050; J7512; J7613; P9046; Q9967